=== PATIENT | male | born 1990 | race Native Hawaiian/Other Pacific Islander ===

== ENCOUNTER 2022-08-21 08:24 | Outpatient (REF) | payer OTHER, SELFPAY ==
[2022-08-21 08:45] LABS: MANUAL DIFF FLAG NO
[2022-08-21 08:51] LABS: Basophils Absolute Auto 0.1 X10*3/uL (0.0-0.2); Eosinophils Absolute Auto 0.3 X10*3/uL (0.0-0.4); Eosinophils Percent Auto 4.6 % (0-4); Hematocrit 47.5 % (42.0-52.0); Hemoglobin 15.8 g/dl (14.0-18.0); Imm Gran Abs Auto 0.02 X10*3/uL (0.00-0.03); Imm Gran Pct Auto 0.3 % (0.0-0.4); Lymphocytes Absolute Auto 2.4 X10*3/uL (1.2-4.9); Lymphocytes Percent Auto 38.9 % (20-40); Mean Corpuscular HGB Conc 33.3 g/dl (31.0-36.0); Mean Corpuscular Volume 90.1 fL (80.0-98.0); Mean Platelet Volume 8.7 fL (9.4-12.4); Monocytes Absolute Auto 0.4 X10*3/uL (0.1-1.2); Monocytes Percent Auto 5.7 % (2-11); Neutrophils Percent Auto 49.5 % (45-73); Platelet Count 299 X10*3/uL (160-400); Red Blood Count 5.27 X10*6/uL (4.60-5.80); Red Cell Distribution Width 12.6 % (11.0-16.0); White Blood Count 6.1 X10*3/uL (4.8-10.8)
[2022-08-21 09:30] LABS: Alanine Aminotransferase 29 U/L (0-40); Albumin Level 4.7 g/dL (3.5-5.0); Alkaline Phosphatase 91 U/L (39-117); Anion Gap 12 (12-20); Aspartate Amino Transferase 22 U/L (5-37); Bilirubin Total 0.6 mg/dL (0.0-1.0); Blood Urea Nitrogen 16 mg/dL (9-16); Calcium 9.7 mg/dL (8.4-10.2); Carbon Dioxide 30 mmol/L (22-29); Chloride 104 mmol/L (96-108); Cholesterol 199 mg/dL; Estimated Glomerular Filt Rate > 60; Glucose Fasting 105 mg/dL (60-99); HDL Cholesterol 55 mg/dL; LDL Cholesterol Calculated 124 mg/dl; Sodium 141 mmol/L (135-145); Total Protein 7.2 g/dL (6.5-8.0); Triglycerides 102 mg/dL
[2022-08-21 10:03] LABS: Folate 12.8 ng/mL (> or = 4.0); Vitamin B12 442 pg/mL (200-900); Vitamin D 25-OH Total 18.4 ng/mL (>30)
== END 2022-08-21 08:25 | disposition home or self-care (01) ==
LOC: HO.LAB 08:24
PROVIDERS: PCP Nurse Practitioner Family; Visit Provider Nurse Practitioner Family
DX: Z76.89 Persons encountering health services in other specified circumstances (principal); Z13.1 Encounter for screening for diabetes mellitus; Z13.220 Encounter for screening for lipoid disorders
CPT/HCPCS: 36415; 80053; 80061; 82306; 82607; 82746; 84443; 85025

== ENCOUNTER 2022-09-12 15:12 | Outpatient (REF) | payer OTHER, SELFPAY ==
[2022-09-12 16:09] LABS: Estimated Average Glucose 105 mg/dL; Hemoglobin A1c % 5.3 %
== END 2022-09-12 15:13 | disposition home or self-care (01) ==
LOC: HO.LAB 15:12
PROVIDERS: PCP Nurse Practitioner Family; Visit Provider Nurse Practitioner Family
DX: R73.01 Impaired fasting glucose (principal); R79.89 Other specified abnormal findings of blood chemistry
CPT/HCPCS: 36415; 82306; 83036

== ENCOUNTER 2022-12-02 10:24 | Outpatient (REF) | payer OTHER, SELFPAY ==
[2022-12-02 11:40] LABS: Vitamin D 25-OH Total 46.4 ng/mL (>30)
[2022-12-05 02:03] LABS: Lyme Abs Screen <0.90 index
== END 2022-12-02 10:25 | disposition home or self-care (01) ==
LOC: HO.LAB 10:24
PROVIDERS: PCP Nurse Practitioner Family; Visit Provider Nurse Practitioner Family
DX: A69.20 Lyme disease, unspecified (principal); R79.89 Other specified abnormal findings of blood chemistry
CPT/HCPCS: 36415; 82306; 86617; 86618

== ENCOUNTER 2022-12-09 17:16 | Emergency (ER) | payer OTHER, SELFPAY ==
[2022-12-09 17:35] VITALS: BP 163/101; PULSE 80; RESP 18; TEMP 36.8; O2SAT 98; BMI 20.2
--- NOTE | 2022-12-09 20:43 | ED_ITS ---
HPI - General Adult General Chief complaint: Allergic Reaction Stated complaint: ? reaction to antibiotic-swollen lip,headache Time Seen by Provider: 12/09/22 20:01 Source: patient Mode of arrival: ambulatory Limitations: no limitations History of Present Illness HPI narrative: 32yoM with a PMHx of anxiety, depression, elevated fasting glucose, low vitamin-D level and has a therapist for mental health who is presenting to the ER with complaints of migraine headaches over the past week with associated photophobia along with being on doxycycline and feeling like it is causing worsening migraine headaches. Reports this all started approximately 1 week ago when he was feeling decreased concentration, migraine headaches, light sensitivity and difficulty focusing he also was having body aches and knee swelling therefore he went to an [facility] on Sunday had a full workup with CT scan of his brain, MRI and multiple labs and everything came out normal and he was discharged. Although his symptoms persist therefore he went to urgent care on Sunday and was started on doxycycline for possible Lyme despite having 2- Lyme titers. Although he reports since he started taking the doxycycline within 2 hours he feels like he gets a worsening migraine headache and he had before he started the antibiotics and he also noticed today mild right lower lip swelling and he is concerned if it is related to the doxycycline and is unsure if he should continue taking this. he reports he does have a primary care provider that he can follow-up with. He also went to pick remover this week as well and had a normal exam and was negative for optic neuritis or glaucoma or any other acute processes. He denies any Fevers, chills, congestion, nasal congestion, trouble swallowing or breathing, cough or wheezing, chest tightness, recent falls or head trauma, neck pain or stiffness, paresthesias, focal weakness, chest pain or shortness of breath, dyspnea exertion orthopnea, nausea vomiting, abdominal pain or any other symptoms complaints or concerns at this time. MD complaint: migraine headaches and lower lip swelling with multiple other complaint Onset (ago): week(s) ( over the past week) Related Data Previous Rx's Medication Instructions Recorded nystatin 100,000 unit/gram topical 1 appl topical BID PRN rash #15 06/29/22 cream grams cholecalciferol (vitamin D3) 50 50 mcg PO DAILY #90 tabs 12/07/22 mcg (2,000 unit) tablet amoxicillin 500 mg tablet 500 mg PO TID 14 days #42 tabs 12/09/22 prednisone 20 mg tablet 40 mg PO DAILY inflammation 5 days 12/09/22 #10 tabs Allergies Allergy/AdvReac Type Severity Reaction Status Date / Time cats Allergy Intermediate Runny Nose Uncoded 12/09/22 17:40 Review of Systems Review of Systems: Constitutional : No Weight loss, No Fever, No Chills, No Night Sweats, + Fatigue, + Malaise ENT/Mouth : No Hearing loss, No Ear Pain, No Nasal Congestion, No Sinus Pain, No Hoarseness, No sore throat, No Rhinorrhea, No Swallowing Difficulty Eyes: No Eye Pain, No Swelling, No Redness, No Foreign Body, No Discharge, + blurry Vision Changes Cardiovascular : No Chest Pain, No SOB, No Dyspnea on Exertion, No Orthopnea, No Edema, No Palpitations Respiratory : No Cough, No Sputum, No Wheezing, No Smoke Exposure, No Dyspnea Gastrointestinal : No Nausea, No Vomiting, + Diarrhea, No Constipation, No abdominal Pain, No Hematochezia, No Melena Genitourinary : no irregular bleeding, No Dysuria, No Urinary Frequency, No Hematuria, No Urinary Incontinence, No Urgency, No Flank Pain, No Urinary Flow Changes, No Hesitancy Musculoskeletal : No joint pain, + Myalgias, No Joint Swelling Skin : No Skin Lesions, No rash Neuro : No Weakness, No Numbness, No Paresthesias, No Loss of Consciousness, No Dizziness, + Headache Psych : No Anxiety/Panic, No Depression, No SI/HI/AH/VH, No Social Issues, Heme/Lymph: No Bruising, No Bleeding,No Lymphadenopathy Endocrine : No Polyuria, No Polydipsia, No Temperature Intolerance Yes all other systems are reviewed and are negative [facility] Past Medical History Attestation statement: The following information was validated with the patient. Source: old records reviewed and nursing notes reviewed Medical History Encounter to establish care Surgical History History of ear surgery History of rectal surgery Family History Family History Mother Medical history unknown Father Medical history unknown Social History Social History Housing: House Patient Tobacco Use Status: Never used Tobacco Advance Directives: No Advance Directives Information Provided: Yes service: No Current occupational status: employed Cognitive needs: No Hearing needs: No Vision needs: No Physical Exam ED Vital Signs: Vital Signs - 24 hr 12/09/22 17:35 Temperature 98.2 F Pulse Rate 80 Respiratory Rate 18 Blood Pressure 163/101 H Pulse Oximetry 98 Oxygen Delivery Method Room Air BMI result Body Mass Index 20.2 vital signs have been reviewed as normal and appeared to be correct. Blood pressure normal. Heart rate normal. Respiration rate normal. Temperature normal. Oxygen saturation normal. Appearance: Alert. Oriented X3. No acute distress. Head: Normal external exam. Normocephalic. Atraumatic. No Ambrosio signs noted. No raccoon eyes noted Eyes: PERRLA. EOMI. Conjunctiva and sclera normal. Eyelids normal. ENT: EAC normal. TM's Normal. No septal hematoma noted. No hemotympanum noted. Pharynx normal. Uvula midline. Moist mucous membranes. No lesions/ulcerations or masses noted on the tongue. Normal voice. No trismus noted. No drooling noted. No muffled voice noted. Neck: Normal inspection. Neck supple. FROM. No adenopathy. Thyroid Normal. No tracheal deviation noted. No crepitus is noted. No meningeal signs. No neck mass noted. No signs of trauma noted. CVS: Normal heart rate and rhythm. Heart sound normal. Pulses normal throughout. No murmurs/rales/gallops. Respiratory: No respiratory distress. Painless inspiration. Breath sounds normal. No wheezes/rales/rhonchi noted. Chest nontender. No crepitus is noted. No signs of trauma noted. No accessory muscle usage noted or decreased air movement noted. No signs of trauma. Abdomen: Soft and nontender. Bowel sounds normal in all 4 quadrants. No distention noted. No organomegaly noted. No visible injury noted. Back: No CVA tenderness. Full range of motion noted. Nontender. No signs of trauma. Patient neuro intact bilaterally and distally on all 4 extremities. Patient's reflexes intact bilaterally and distally on all 4 extremities. No rashes/lesion/induration/fluctuance or signs of infection noted. Skin: Skin warm and dry. Normal skin color. Normal skin turgor. No rashes/lesions/lacerations noted. Extremities: No lower extremity edema. No calf tenderness is noted. Extremities exhibit normal range of motion and nontender. Neuro: Oriented X 3. No motor deficit. No sensory deficit. Reflexes normal. Normal steady gait. No focal neuro deficits noted. CN's II-XII intact bilaterally? Vascular: + radial pulses/+ 2 distal pedal pulses/+2 dorsalis pedis b/l. Normal cap refill. No cyanosis noted to upper extremity nails and lower extremity toes nails. Course Course Course Narrative: 32yoM with a PMHx of anxiety, depression, elevated fasting glucose, low vitamin-D level and has a therapist for mental health who is presenting to the ER with complaints of migraine headaches over the past week with associated photophobia along with being on doxycycline and feeling like it is causing wor sening migraine headaches. Reports this all started approximately 1 week ago when he was feeling decreased concentration, migraine headaches, light sensitivity and difficulty focusing he also was having body aches and knee swelling therefore he went to an [facility] on Sunday had a full workup with CT scan of his brain, MRI and multiple labs and everything came out normal and he was discharged. Although his symptoms persist therefore he went to urgent care on Sunday and was started on doxycycline for possible Lyme despite having 2- Lyme titers. Although he reports since he started taking the doxycycline within 2 hours he feels like he gets a worsening migraine headache and he had before he started the antibiotics and he also noticed today mild right lower lip swelling and he is concerned if it is related to the doxycycline and is unsure if he should continue taking this. he reports he does have a primary care provider that he can follow-up with. He also went to ophtha lmologist this week as well and had a normal exam and was negative for optic neuritis or glaucoma or any other acute processes. patient most likely migraine headache related to stressors or adverse effect related to the doxycycline. Not consistent with CVA or intracranial hemorrhage. Not consistent with meningitis. Not consistent with ACS. I do not believe this patient needs any labs or imaging at this time as patient had a full workup at [facility] 3 days ago including MRI, CT scan EKGs and multiple blood work along with urgent care follow-up and also has some repeat labs on Sunday. He also followed up with Ophthalmology this week and had a normal ophthalmology exam. I discussed with the patient that he can discontinue taking the doxycycline I can start him on amoxicillin and steroids for possible adverse reaction/allergic reaction to the doxycycline. Otherwise he has a normal neuro exam and had a normal workup therefore I explained to him that he can also take Motrin Tylenol for his migraine headaches and he can follow up with his PCP and to return if any new or worsening symptoms. Patient understands agrees with this plan. Medical Decision Making Medical Decision Making MDM Narrative: see course Differential Diagnosis Differential Diagnoses: The differential diagnosis associated with the presentation includes see course Admission/Observation Consideration of admission/observation: Escalation of care including admission/observation considered External Record Review External record reviewed: Inpatient record, Office record, Outpatient record, Prior outpatient labs, Prior outpatient radiology, Primary care record and Outside ED record All prior labs/imaging and notes that are accessible and our system reviewed by myself Prescription Management I considered prescription management with: Antibiotic and Other ( and prednisone) Chronic Conditions Patient?s care impacted by: Other ( mental health anxiety depression) Social Determinants Patient?s care significantly limited by Social Determinants of Health including: Low income and Other Social Determinant of Health Discharge Plan Discharge Clinical Impression: Headache, migraine, Adverse effect of doxycycline Patient Disposition: Home, Self-Care Instructions: Migraine Headache (ED), Adverse Drug Reaction (ED) Prescriptions: New amoxicillin 500 mg tablet 500 mg PO TID 14 Days Qty: 42 0RF prednisone 20 mg tablet 40 mg PO DAILY 5 Days Qty: 10 0RF No Action cholecalciferol (vitamin D3) 50 mcg (2,000 unit) tablet 50 mcg PO DAILY Qty: 90 0RF nystatin 100,000 unit/gram cream 1 appl topical BID PRN (Reason: rash) Qty: 15 0RF Referrals: Physician,Unknown J [Primary Care Provider] - 2 days (your pcp)
== END 2022-12-09 21:21 | disposition home or self-care (01) ==
PROVIDERS: Emergency Provider Emergency Medicine
DX: G43.909 Migraine, unspecified, not intractable, without status migrainosus (principal); T36.4X5A Adverse effect of tetracyclines, initial encounter; Y92.9 Unspecified place or not applicable
CPT/HCPCS: 99282; 99283

== ENCOUNTER 2022-12-14 14:37 | Outpatient (AMB) | payer OTHER, SELFPAY ==
[2022-12-14 14:38] VITALS: BP 160/82; PULSE 98; O2SAT 99; BMI 19.7
--- NOTE | 2022-12-14 14:38 | A.OFFPC_ITS ---
Vital Signs 12/14/22 14:38 12/14/22 15:14 Height 5 ft 11 in Weight 141 lb BMI 19.7 BP 160/82 H 130/86 Blood Pressure Location Lt brachial Lt brachial Position Sitting Sitting Pulse 98 Pulse Source Pulse Oximeter Temp Source Skin Pulse Oximetry (%) 99 Oxygen Delivery Method Room Air Intake Visit Re[place] [facility] [place], loss of vision, headaches Intake Note: Patient is here for hospital discharge follow up. Patient was [place] [facility] [place]. [employer] Required: No Allergies cats Allergy (Intermediate, Uncoded 12/14/22 14:49) Runny Nose Medication List - Last Reconciled 12/14/22 by LEONOR Walter cholecalciferol (vitamin D3) 50 mcg PO DAILY nystatin 1 appl topical BID PRN Tobacco use date assessed: 12/14/22 Dental Screening Dental Screen Date: 12/14/22 HPI [facility] [place], loss of vision, headaches HPI Details Patient is a 32-year-old male who presents today to follow-up after [facility] visit 12/05/2022 due to dizziness, nausea, unsteady, aches since November. Pre [facility] Emergency Department note: Patient presented to ED with a 2 week history of multiple complaints. Patient with concerns of Lyme disease. He states he has had intermittent nausea, body aches, lightheadedness, diarrhea, headaches, and fatigue for the past 2 weeks. He denies known tick bites or rashes. He was seen at urgent care and tested negative for COVID-19. He denies changes in diet or medication. He denies recent travel or no sick contacts. Vital signs were stable, benign exam. Patient was treated with IV hydration, Zofran, and Toradol. Chest x-ray with no acute cardiopulmonary process. CT brain/head with no acute intracranial abnormality. Blood work respiratory panel and EKG with no concerning abnormalities. Patient was discharged home with Zofran as needed for nausea encouraged to follow up with PCP. Patient reports that he was seen at urgent care 12/04/2022 and was started on doxycycline for a possible Lyme disease. Then, patient was seen at [facility] 12/09/2022: 32yoM with a PMHx of? anxiety, depression, elevated fasting glucose, low vitamin-D level and has a therapist for mental health who is presenting to the ER with complaints of migraine headaches over the past week with associated photophobia along with being on doxycycline and feeling like it is causing worsening migraine headaches.? Reports this all started approximately 1 week ago when he was feeling decreased concentration, migraine headaches, light sensitivity and difficulty focusing he also was having body aches and knee swelling [facility] full [facility] with CT scan of his brain, MRI and multiple labs and everything came out normal and he was discharged.? Although his symptoms persist therefore he went to urgent care on Sunday and was started on doxycycline for possible Lyme despite having 2- Lyme titers.? Although he reports? since he started taking the doxycycline within 2 hours he feels like he gets a worsening migraine headache and he had before he started the antibiotics and he also noticed today mild right lower lip swelling and he is concerned if it is related to the doxycycline and is unsure if he should continue taking this.? he reports he does have a primary care provider that he can follow-up with.? He also went to lacquerer this week as well and had a normal exam and was negative for optic neuritis or glaucoma or any other acute processes. ?patient most likely migraine headache related to stressors or adverse effect related to the doxycycline.? Not consistent with CVA or intracranial hemorrhage.? Not consistent with meningitis.? Not consistent with ACS.? I do not believe this patient needs any labs or imaging at this time as patient had a full workup at [facility] 3 days ago including MRI, CT scan EKGs and multiple blood work along with urgent care follow-up and also has some repeat labs on Sunday.? He also followed up with Ophthalmology this week and had a normal ophthalmology exam.? I discussed with the patient that? he can discontinue taking the doxycycline I can start him on amoxicillin and steroids for possible adverse reaction/allergic reaction to the doxycycline.? Otherwise he has a normal neuro exam and had a normal workup therefore I explained to him that he can also take Motrin Tylenol for his migraine headaches and he can follow up with his PCP and to return if any new or worsening symptoms.? Patient understands agrees with this plan. Today, patient reports left temporal headache throbbing sensation, left ear clog ged sensation, sensitivity to light, fatigue, chills, body aches, multiple joint pains in his shoulders and wrists, reports pain left-sided ribs lateral aspect- denies injury. Reports headache 8/10 scale presently left-sided, reports taking Tylenol with no much improvement. Reports headaches in the past although headaches seem to get worse after he was on doxycycline. Patient reports that he was also started on amoxicillin in [facility] although his stop with due to double vision. Reports that he has finished prednisone. Was seen by eye doctor 12/06/2022 and was diagnosed with dry eyes and posterior vitreous detachment-will be seeing eye doctor again for this. Patient reports that he stopped drinking any alcohol since starting with his symptoms. Reports being on computer about 6 hours per day. Reports nausea and diarrhea intermittent. No chest pain. Patient did provide PCP with list of his symptoms and days, see scanned in the chart. [facility] Medical History Encounter to establish care Surgical History History of ear surgery History of rectal surgery Family History Mother Medical history unknown Father Medical history unknown Social History Housing: House Patient Tobacco Use Status: Never used Tobacco service: No Current occupational status: employed Cognitive needs: No Hearing needs: No Vision needs: No Questionnaire Thrive Questionnaire Date Thrive assessed: 06/29/22 AUDIT C Alcohol Use Questionnaire (AUDIT-C) 1. How often do you have a drink containing alcohol?: 2-3 times a week 2. How many drinks containing alcohol do you have on a typical day when you are drinking?: 3 or 4 3. How often do you have six or more drinks on one occasion?: Daily or almost daily Total Score: 8 Score Reviewed/Action Taken: Yes ARVIND-7 AMB Questionnaire ARVIND-7 Date ARVIND - 7 assessed: 09/27/22 Source: Developed by Drs. Scooter Briones, Lida Carey, Gerard Lakhani and colleagues, with an educational karol from [employer]. Review of Systems Const Reports as per HPI, Denies body aches, Reports chills, Reports fatigue, Denies fever(s) and Reports headache(s) Eyes Reports as per HPI, Reports blurry vision, Reports change in vision, Reports diplopia and Reports floaters ENT Reports as per HPI, Reports dizziness, Denies otalgia, Reports headache(s), Denies nasal discharge, Denies sinus pain and Denies sore throat Card Denies chest pain, Denies edema, Denies lightheadedness and Denies dyspnea Resp Denies cough, Denies dyspnea and Denies wheezing GI Denies abdominal pain, Denies constipation, Reports diarrhea, Reports nausea and Denies vomiting Denies dysuria Musc Denies myalgias and Reports arthralgias Skin/Breast Denies rash Neuro Reports dizziness and Reports headache(s) Endo Reports fatigue Aller/Immun Denies wheezing Physical exam (Primary Care) Vital Signs: Last Vital Signs Pulse 98 12/14/22 14:38 BP 130/86 12/14/22 15:14 Pulse Ox 99 12/14/22 14:38 Oxygen Delivery Method Room Air 12/14/22 14:38 BMI result Body Mass Index 19.7 Tobacco/Smoking Status: Tobacco use Status Tobacco use date assessed 12/14/22 12/14/22 14:42 Patient Tobacco Use Status Never used Tobacco 12/14/22 14:42 Thrive Assessment: Date of Thrive Assessment Date Thrive assessed 06/29/22 12/14/22 14:42 Const General: cooperative and no acute distress Orientation/consciousness: patient oriented x3 HENMT Other: No left temporal tenderness Head: Yes normocephalic and Yes atraumatic Ears: TM's normal bilaterally Face and sinus: Yes sinuses nontender Mouth: oropharynx normal and moist mucous membranes Throat: Yes posterior oropharynx normal Eyes General: appearance normal, both eyes and all related structures Pupils: Equal, round and reactive pupils present EOM: EOMs intact bilaterally Neck Neck: Yes normal visual inspection, Yes full ROM and Yes no lymphadenopathy Thyroid: Thyroid normal Resp Effort & Inspection: normal respiratory effort and able to speak in complete sentences Auscultation: clear to auscultation bilaterally, no crackles, no rales, no rhonchi and no wheezes Cardio Rate: regular rate Rhythm: regular rhythm Heart sounds: S1 normal heart sound present, S2 normal heart sound present and no murmurs GI Inspection: Yes normal to inspection Palpation (GI): Soft to palpation, not firm, nontender, no guarding, not rigid and no hepatosplenomegaly Auscultation: normal bowel sounds General: No CVA tenderness Back/Spine/Pelvis Back: No CVA tenderness Skin General skin exam: no rashes or lesions noted Neuro General: patient oriented x3 and CN's II-XI intact bilaterally Cranial nerves: Yes Equal, round and reactive pupils present Gait exam (Neuro): Normal gait present Motor exam (neuro): 5/5 motor strength present throughout Extrem Other: Left ribs normal to inspection, very mild tenderness General: Yes full ROM and No edema Assessment and Plan Assessment & Plan (1) Diarrhea: Code(s): R19.7 - Diarrhea, unspecified Plan: Encouraged bland diet Blood work and stool samples ordered Signs and symptoms reviewed when to notify provider or go to the emergency department (2) Polyarthralgia: Code(s): M25.50 - Pain in unspecified joint Plan: Blood work ordered, will also check for rheumatoid arthritis and DILAN (3) Headache: Code(s): R51.9 - Headache, unspecified Plan: Patient reports left temporal headache which is throbbing with sensitivity to light, reports feeling slightly better in dark room. Physical exam with no acute findings. Patient is to continue Tylenol 1000 mg every 6 hours as needed, will provide patient with ibuprofen 600 mg every 8 hours p.r.n.. He can alternate Tylenol with ibuprofen. Offered to start patient on sumatriptan, he would like to hold off due to possible adverse reactions such as partial vision loss. 12/05/2022 CT brain/head with no acute intracranial abnormality. Urgent referral to Neurology for an evaluation and treatment. Signs and symptoms reviewed when to notify provider or go to the emergency department. (4) Adverse effect of doxycycline: Code(s): T36.4X5A - Adverse effect of tetracyclines, initial encounter Plan: Patient has finished prednisone Plan 1st blood pressure was elevated in the office today, recheck blood pressure normal. Patient was encouraged to monitor his blood pressures at home periodically, goal BP equal or less than 140/90. Signs and symptoms reviewed when to notify provider or go to the emergency department. Patient agreed with the plan. Will follow-up with patient in 1 month. Orders: Orders Vitamin B12 and Folate Today R51.9 - Headache, unspecified Comprehensive Met. Panel Today R51.9 - Headache, unspecified Rheumatoid Factor Today M25.50 - Pain in unspecified joint TSH reflex Free T4 Today R51.9 - Headache, unspecified Vitamin D 25-OH Total Today R51.9 - Headache, unspecified Complete Blood Count Auto Diff Today R51.9 - Headache, unspecified DILAN Reflex Titer and Pattern Today M25.50 - Pain in unspecified joint CDiff Gene PCR Today R19.7 - Diarrhea, unspecified Ova and Parasite Today R19.7 - Diarrhea, unspecified Leukocytes Stool Qualitative Today R19.7 - Diarrhea, unspecified Referrals Neurology Referral R51.9 - Headache, unspecified Medications: New ibuprofen 600 mg PO Q8H PRN 20 tabs 0RF pain R51.9 - Headache, unspecified Coding Level of Care Code Est Pt Level 3 (70485) Diagnoses Diarrhea R19.7 Polyarthralgia M25.50 Headache R51.9 Adverse effect of doxycycline T36.4X5A
[2022-12-14 15:14] VITALS: BP 130/86
== END 2022-12-14 15:35 | disposition home or self-care (01) ==
PROVIDERS: Visit Provider Nurse Practitioner Family
DX: R19.7 Diarrhea, unspecified (principal); M25.50 Pain in unspecified joint; R51.9 Headache, unspecified; T36.4X5A Adverse effect of tetracyclines, initial encounter
CPT/HCPCS: 99213

== ENCOUNTER 2022-12-16 10:19 | Outpatient (REF) | payer OTHER, SELFPAY ==
[2022-12-16 10:49] LABS: MANUAL DIFF FLAG NO
[2022-12-16 11:20] LABS: Basophils Absolute Auto 0.1 X10*3/uL (0.0-0.2); Eosinophils Percent Auto 0.6 % (0-4); Hematocrit 44.2 % (42.0-52.0); Imm Gran Abs Auto 0.01 X10*3/uL (0.00-0.03); Imm Gran Pct Auto 0.2 % (0.0-0.4); Lymphocytes Absolute Auto 1.7 X10*3/uL (1.2-4.9); Mean Corpuscular HGB Conc 33.9 g/dl (31.0-36.0); Mean Corpuscular Hemoglobin 30.2 pg (27.0-33.0); Mean Corpuscular Volume 89.1 fL (80.0-98.0); Mean Platelet Volume 9.4 fL (9.4-12.4); Monocytes Absolute Auto 0.3 X10*3/uL (0.1-1.2); Monocytes Percent Auto 5.7 % (2-11); Neutrophils Percent Auto 58.5 % (45-73); Platelet Count 291 X10*3/uL (160-400); Red Blood Count 4.96 X10*6/uL (4.60-5.80); Red Cell Distribution Width 11.4 % (11.0-16.0); White Blood Count 5.1 X10*3/uL (4.8-10.8)
[2022-12-16 12:15] LABS: Vitamin B12 494 pg/mL (200-900)
[2022-12-16 12:31] LABS: Rheumatoid Factor < 13.0 IU/mL (<15.0)
[2022-12-16 14:57] LABS: Alanine Aminotransferase 20 U/L (0-40); Albumin Level 4.7 g/dL (3.5-5.0); Alkaline Phosphatase 68 U/L (39-117); Anion Gap 14 (12-20); Aspartate Amino Transferase 18 U/L (5-37); Bilirubin Total 0.9 mg/dL (0.0-1.0); Blood Urea Nitrogen 15 mg/dL (9-16); Carbon Dioxide 28 mmol/L (22-29); Chloride 105 mmol/L (96-108); Estimated Glomerular Filt Rate > 60; Glucose Random 99 mg/dL (60-115); Potassium 4.8 mmol/L (3.3-5.1); Sodium 142 mmol/L (135-145); Total Protein 7.5 g/dL (6.5-8.0)
[2022-12-16 15:12] LABS: TSH reflex Free T4 1.42 uIU/mL (0.32-4.0)
[2022-12-19 06:28] LABS: Lyme Abs Screen <0.90 index
[2022-12-22 13:29] LABS: Anti Nuclear Antibody Screen NEGATIVE (NEGATIVE)
== END 2022-12-16 10:20 | disposition home or self-care (01) ==
LOC: HO.LAB 10:19
PROVIDERS: PCP Nurse Practitioner Family; Visit Provider Nurse Practitioner Family
DX: M25.50 Pain in unspecified joint (principal); R51.9 Headache, unspecified
CPT/HCPCS: 36415; 80053; 82306; 82607; 82746; 84443; 85025; 86038; 86431; 86617; 86618

== ENCOUNTER 2022-12-18 12:03 | Outpatient (REF) | payer OTHER, SELFPAY ==
[2022-12-18 13:49] LABS: Leukocytes Stool Qualitative NEGATIVE (NEGATIVE)
[2022-12-18 14:04] LABS: CDiff Gene PCR NEGATIVE (Negative)
== END 2022-12-18 12:04 | disposition home or self-care (01) ==
LOC: HO.LNP 12:03
PROVIDERS: Visit Provider Nurse Practitioner Family
DX: R19.7 Diarrhea, unspecified (principal)
CPT/HCPCS: 87177; 87209; 87493; 89055

== ENCOUNTER 2022-12-18 14:31 | Outpatient (AMB) | payer OTHER, SELFPAY ==
--- NOTE | 2022-12-18 14:53 | MHC.PC.OV ---
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 Patient last seen by Radha Calle on 12/14/22. Patient presents today for muscle twitching, fatigue and polyphagia. Review of the notes patient has been seen multiple times between [facility], [facility] and urgent cares for photophobia, worsening migraine headaches, light sensitivity and difficulty focusing as well as body aches. Workup at [facility] head CT, MRI and labs unremarkable. Symptoms persisted so he went to urgent care was started on doxycycline for treatment of Lyme however he had 2 Lyme titers which were negative. Patient then complained of adverse reactions related to doxycycline that he was started on. And was treated with amoxicillin and steroids for this. Patient last seen by Radha Calle last week. Complete blood work was drawn, unremarkable, rheumatoid factor negative. DILAN remains pending. Patient presents today stating that he continues to have muscle twitching and is concerned that he is a diabetic due to his past poor eating habits and would like to have his diabetic labs completed again. Patient reassured hemoglobin A1c and fasting glucose was normal in September of 5.3%, patient adamant that he would like his labs redrawn. Hemoglobin A1c, CMP as well as magnesium and phosphorus ordered. Patient currently following with a therapist for anxiety however he is not interested in taking any medications at this time. [facility] Medical History Encounter to establish care Surgical History History of ear surgery History of rectal surgery Family History Mother Medical history unknown Father Medical history unknown Social History Housing: House Patient Tobacco Use Status: Never used Tobacco service: No Current occupational status: employed Cognitive needs: No Hearing needs: No Vision needs: No Questionnaire Thrive Questionnaire Date Thrive assessed: 06/29/22 AUDIT C Alcohol Use Questionnaire (AUDIT-C) 1. How often do you have a drink containing alcohol?: 2-3 times a week 2. How many drinks containing alcohol do you have on a typical day when you are drinking?: 3 or 4 3. How often do you have six or more drinks on one occasion?: Daily or almost daily Total Score: 8 Score Reviewed/Action Taken: Yes ARVIND-7 AMB Questionnaire ARVIND-7 Date ARVIND - 7 assessed: 09/27/22 Source: Developed by Drs. Scooter Briones, Lida Carey, Gerard Lakhani and colleagues, with an educational karol from [employer]. Review of Systems Const Denies chills, Denies fatigue, Denies fever(s) and Denies poor appetite Eyes Denies no additional complaints ENT Reports Normal hearing present Card Denies chest pain, Denies syncope, Denies rapid heart rate and Denies dyspnea Resp Denies cough and Denies dyspnea GI Denies change in stool character, Denies constipation, Denies diarrhea, Denies nausea and Denies vomiting Denies dysuria, Denies urinary frequency and Denies urinary urgency Neuro Reports Normal hearing present, Denies confusion and Denies syncope Psych Denies confusion Endo Denies fatigue Physical exam (Primary Care) Vital Signs: Last Vital Signs Pulse 72 12/18/22 14:54 BP 130/70 12/18/22 14:54 Pulse Ox 100 12/18/22 14:54 Oxygen Delivery Method Room Air 12/18/22 14:54 BMI result Body Mass Index 19.5 Tobacco/Smoking Status: Tobacco use Status Tobacco use date assessed 12/18/22 12/18/22 15:00 Patient Tobacco Use Status Never used Tobacco 12/18/22 14:54 Thrive Assessment: Date of Thrive Assessment Date Thrive assessed 06/29/22 12/18/22 14:54 Const General: No confusion Orientation/consciousness: No confusion HENMT Head: Yes normocephalic and Yes atraumatic Eyes Conjunctivae: conjunctivae normal Chest Chest palpation & inspection: normal inspection of the chest Resp Effort & Inspection: normal respiratory effort Auscultation: clear to auscultation bilaterally, no crackles, no rhonchi and no wheezes Cardio Rate: regular rate Rhythm: regular rhythm Heart sounds: S1 normal heart sound present and S2 normal heart sound present GI Inspection: Yes normal to inspection Neuro General: No confusion Cranial nerves: Yes Normal hearing present Extrem General: No edema Assessment and Plan Assessment & Plan (1) Polyphagia: Code(s): R63.2 - Polyphagia Plan: HGB A1C and Fasting glucose ordered. (2) Muscle twitching: Code(s): R25.3 - Fasciculation Plan: CMP, magnesium and phosphorus ordered to further evaluate for any electrolyte abnormalities. (3) Anxiety: Code(s): F41.9 - Anxiety disorder, unspecified Plan: Continue to follow with therapist. (4) Depression: Code(s): F32.A - Depression, unspecified Plan: Continue to follow with therapist. Denies SI/HI Plan Keep scheduled follow-up with PCP. Orders: Orders Comprehensive [place]. Panel Fast 12/19/22 R63.2 - Polyphagia Hemoglobin A1c 12/19/22 R63.2 - Polyphagia Magnesium 12/19/22 R25.3 - Fasciculation, R63.2 - Polyphagia Phosphorus 12/19/22 R25.3 - Fasciculation Coding Level of Care Code Est Pt Level 4 (05952) Diagnoses Polyphagia R63.2 Muscle twitching R25.3 Anxiety F41.9 Depression F32.A
[2022-12-18 14:54] VITALS: BP 130/70; PULSE 72; O2SAT 100; BMI 19.5
== END 2022-12-18 15:35 | disposition home or self-care (01) ==
PROVIDERS: PCP Nurse Practitioner Family; Visit Provider Nurse Practitioner Family
DX: R63.2 Polyphagia (principal); R25.3 Fasciculation; F41.9 Anxiety disorder, unspecified; F32.A Depression, unspecified
CPT/HCPCS: 99214

== ENCOUNTER 2022-12-19 08:08 | Emergency (ER) | payer OTHER, SELFPAY ==
[2022-12-19 08:10] VITALS: BP 150/82; PULSE 72; RESP 18; TEMP 36.8; O2SAT 98; BMI 19.8
--- NOTE | 2022-12-19 08:15 | ECG_ITS ---
Test Reason : cp Blood Pressure : / mmHG Vent. Rate : 074 BPM Atrial Rate : 074 BPM P-R Int : 178 ms QRS Dur : 088 ms QT Int : 362 ms P-R-T Axes : 077 091 074 degrees QTc Int : 401 ms Normal sinus rhythm with sinus arrhythmia Rightward axis Borderline ECG No previous ECGs available Referred By: Generic ED Physician Electronically Signed By:ARLINE NEWMAN
[2022-12-19 08:32] LABS: MANUAL DIFF FLAG NO
[2022-12-19 08:36] LABS: Basophils Percent Auto 0.6 % (0-2); Eosinophils Absolute Auto 0.1 X10*3/uL (0.0-0.4); Eosinophils Percent Auto 1.6 % (0-4); Hematocrit 43.9 % (42.0-52.0); Hemoglobin 15.2 g/dl (14.0-18.0); Imm Gran Abs Auto 0.01 X10*3/uL (0.00-0.03); Imm Gran Pct Auto 0.2 % (0.0-0.4); Lymphocytes Absolute Auto 1.7 X10*3/uL (1.2-4.9); Lymphocytes Percent Auto 32.8 % (20-40); Mean Corpuscular HGB Conc 34.6 g/dl (31.0-36.0); Mean Corpuscular Volume 86.8 fL (80.0-98.0); Monocytes Absolute Auto 0.3 X10*3/uL (0.1-1.2); Monocytes Percent Auto 5.3 % (2-11); Neutrophils Absolute Auto 3.1 x10*3/uL (2.0-8.3); Neutrophils Percent Auto 59.5 % (45-73); Platelet Count 289 X10*3/uL (160-400); Red Blood Count 5.06 X10*6/uL (4.60-5.80); Red Cell Distribution Width 11.8 % (11.0-16.0); White Blood Count 5.1 X10*3/uL (4.8-10.8)
[2022-12-19 08:48] LABS: Anion Gap 11 (12-20); Blood Urea Nitrogen 14 mg/dL (9-16); Calcium 9.6 mg/dL (8.4-10.2); Carbon Dioxide 26 mmol/L (22-29); Chloride 106 mmol/L (96-108); Creatinine Clr Calc Pharmacy 112.5; Estimated Glomerular Filt Rate > 60; Glucose Random 101 mg/dL (60-115); Potassium 4.1 mmol/L (3.3-5.1); Sodium 139 mmol/L (135-145)
[2022-12-19 08:58] LABS: Troponin-I High Sensitivity < 2.7 ng/L (<3.5-35.0)
--- NOTE | 2022-12-19 11:03 | ED.GENADULT ---
HPI - General Adult General Chief complaint: General Medical Stated complaint: Heart issues/Double vision Time Seen by Provider: 12/19/22 11:03 Source: patient, RN notes reviewed and old records reviewed Mode of arrival: ambulatory History of Present Illness HPI narrative: 32-year-old male with a past medical history depression, anxiety, polyarthralgia, presenting to the ED complaining of diffuse myalgias, muscle twitching, left-sided temporal headache, palpitations with feeling like I was having a heart attack last night. Patient has been seen and treated by multiple providers in the past few weeks including [facility] ED, [employer], this ED, & PCP x2 visits most recently yesterday, for similar symptoms, has had negative labs, head CT, and Lyme titer. DILAN titers currently pending. Patient was on course of Doxycycline which was changed to Amoxicillin secondary to worsening symptoms, self stop Amoxicillin last week. Admits chest pain improved at present. Denies SOB, abdominal pain, nausea /vomiting, vision loss Onset (ago): week(s) Related Data Previous Rx's Medication Instructions Recorded nystatin 100,000 unit/gram topical 1 appl topical BID PRN rash #15 06/29/22 cream grams cholecalciferol (vitamin D3) 50 50 mcg PO DAILY #90 tabs 12/07/22 mcg (2,000 unit) tablet ibuprofen 600 mg tablet 600 mg PO Q8H PRN pain #20 tabs 12/14/22 Allergies Allergy/AdvReac Type Severity Reaction Status Date / Time cats Allergy Intermediate Runny Nose Uncoded 12/18/22 14:58 Review of Systems Review of Systems: Constitutional: No Fever, No Chills, No Fatigue, No Malaise ENT/Mouth: No Ear Pain, No Nasal Congestion, No sore throat, No Rhinorrhea, No Swallowing Difficulty Eyes: No Eye Pain, No Swelling, No Redness, No Vision Changes Cardiovascular: +Chest Pain, No SOB, No Edema, + Palpitations Respiratory: No Cough, No Dyspnea Gastrointestinal: No Nausea, No Vomiting, No Diarrhea, No Constipation, No Abdominal pain Genitourinary: No Dysuria, No Hematuria, No Flank Pain Musculoskeletal: No joint pain, + Myalgias, No Joint Swelling Skin: No Skin Lesions, No rash Neuro: No Weakness, No Numbness, + Paresthesias, No Loss of Consciousness, No Dizziness, + Headache Psych: + Anxiety/Panic, No Depression, No SI/HI/AH/VH, No Social Issues Yes all other systems are reviewed and are negative Constitutional: Constitutional: Reports as per HPI Neurologic: Denies Abnormal speech present [facility] Past Medical History Attestation statement: The following information was validated with the patient. Source: old records reviewed Medical History Encounter to establish care Surgical History History of ear surgery History of rectal surgery Family History Family History Mother Medical history unknown Father Medical history unknown Social History Social History Housing: House Patient Tobacco Use Status: Never used Tobacco service: No Current occupational status: employed Cognitive needs: No Hearing needs: No Vision needs: No Physical Exam ED Vital Signs: Vital Signs - 24 hr 12/19/22 08:10 12/19/22 11:16 12/19/22 13:31 Temperature 98.2 F 98.7 F 98.3 F Pulse Rate 72 72 65 Respiratory Rate 18 16 16 Blood Pressure 150/82 H 136/71 129/73 Pulse Oximetry 98 100 99 Oxygen Delivery Method Room Air Room Air Room Air BMI result Body Mass Index 19.8 Const General: cooperative, healthy appearing, no acute distress, alert and awake Orientation/consciousness: patient oriented x3 Limitations: no limitations HENMI Head: Yes normal to inspection and Yes atraumatic Ears: hearing grossly normal bilaterally General nose exam: Normal external nose present Face and sinus: Yes normal facial exam Throat: Yes posterior oropharynx normal, Yes tonsils normal, Yes uvula midline, No peritonsillar mass and No uvular edema Eyes General: appearance normal, both eyes and all related structures Pupils: Equal, round and reactive pupils present EOM: EOMs intact bilaterally Neck Neck: Yes normal visual inspection and Yes no meningeal signs Resp Effort & Inspection: normal respiratory effort and no respiratory distress Auscultation: clear to auscultation bilaterally and no wheezes Cardio Rate: regular rate Heart sounds: S1 normal heart sound present and S2 normal heart sound present GI Inspection: Yes normal to inspection Palpation (GI): Soft to palpation, nontender, no guarding and not rigid Skin Rashes: no rashes Wounds: no wounds Neuro General: patient oriented x3, gait normal, tone normal, moves all extremities, no meningeal signs, no focal motor deficits and CN's II-XI intact bilaterally Cranial nerves: Yes CN's II-XII intact bilaterally, Yes Equal, round and reactive pupils present, Yes Bilaterally intact EOM present and Yes Normal facial strength present Speech: No Abnormal speech present Gait exam (Neuro): Normal gait present Motor exam (neuro): 5/5 motor strength present throughout, Pronator motor function not present and no tremor noted Coordination: [id number] test normal Romberg Test: Negative Extrem General: Yes normal to inspection Course Course Course Narrative: -1328-- labs unremarkable including ESR/CRP, UA with 15 ketones/not infected Results discussed with patient including worrisome signs and symptoms and strict return precautions, and when to return to the emergency department. They verbalized understanding and feel safe for discharge at this time. Medical Decision Making Medical Decision Making MDM Narrative: 32-year-old male with a past medical history depression, anxiety, polyarthralgia, presenting to the ED complaining of diffuse myalgias, muscle twitching, left-sided temporal headache, palpitations with feeling like I was having a heart attack last night. on exam vital signs stable, anxious, NAD, nontoxic appearing, exam nonfocal, no focal neuro deficits. Concern for anxiety vs metabolic abnormality vs ? giant cell arteritis vs autoimmune pathology. Low suspicion for ACS, PE, pneumonia, pancreatitis/ cholecystitis or other intra-abdominal pathology vs migraine headache vs viral syndrome plan: Labs including electrolytes, ESR/ CRP, folate/B12, CPK, UA, rheumatology/PCP and neurology follow-up Please refer to course for remaining clinical decision making, interpretation of labs/imaging results, and discussions with consultants and/or family members. Differential Diagnosis Differential Diagnoses: The differential diagnosis associated with the presentation includes As above Admission/Observation Consideration of admission/observation: Escalation of care including admission/observation considered Lab Data [facility] Lab Attestation statement: I reviewed the patient's lab results. 12/19/22 08:27 12/19/22 08:27 Labs: Lab Results 12/19/22 12/19/22 12/19/22 Range/Units 08:27 08:27 08:27 WBC 5.1 (4.8-10.8) X10*3/uL RBC 5.06 (4.60-5.80) X10*6/uL Hgb 15.2 (14.0-18.0) g/dl Hct 43.9 (42.0-52.0) % MCV 86.8 (80.0-98.0) fL MCH 30.0 (27.0-33.0) pg MCHC 34.6 (31.0-36.0) g/dl RDW 11.8 (11.0-16.0) % Plt Count 289 (160-400) X10*3/uL MPV 9.0 L (9.4-12.4) fL Immature Gran % (Auto) 0.2 (0.0-0.4) % Neut % (Auto) 59.5 (45-73) % Lymph % (Auto) 32.8 (20-40) % Barron % (Auto) 5.3 (2-11) % Eos % (Auto) 1.6 (0-4) % Baso % (Auto) 0.6 (0-2) % Lymph # (Auto) 1.7 (1.2-4.9) X10*3/uL Barron # (Auto) 0.3 (0.1-1.2) X10*3/uL Eos # (Auto) 0.1 (0.0-0.4) X10*3/uL Baso # (Auto) 0.0 (0.0-0.2) X10*3/uL Abs Immat Gran (auto) 0.01 (0.00-0.03) X10*3/uL Absolute Neuts (auto) 3.1 (2.0-8.3) x10*3/uL Absolute Nucleated RBC 0.000 (0.0-0.012) X10*3/uL Nucleated RBC % (auto) 0.0 (0.0-0.2) /100WBC ESR (0-15) MM/HR Sodium 139 (135-145) mmol/L Potassium 4.1 (3.3-5.1) mmol/L Chloride 106 (96-108) mmol/L Carbon Dioxide 26 (22-29) mmol/L Anion Gap 11 L (12-20) BUN 14 (9-16) mg/dL Creatinine 0.86 (0.5-1.4) mg/dL Estim Creat Clear Calc 112.5 Estimated GFR > 60 Random Glucose 101 (60-115) mg/dL Calcium 9.6 (8.4-10.2) mg/dL Phosphorus 2.8 (2.7-4.5) mg/dL Magnesium 2.1 (1.6-2.6) mg/dL Total Creatine Kinase 79 (38-174) U/L Troponin I High Sens < 2.7 (<3.5-35.0) ng/L C-Reactive Protein < 0.10 (< or = 0.50) mg/dL Urine Color Urine Appearance Urine pH (5.0-9.0) Ur Specific [place] (1.005-1.025) Urine Protein (Neg-Trace) mg/dL Urine Glucose (UA) (Negative) mg/dL Urine Ketones (Negative) mg/dL Urine Blood (Negative) Urine Nitrite (Negative) Ur Leukocyte Esterase (Negative) 12/19/22 12/19/22 Range/Units 08:27 12:51 WBC (4.8-10.8) X10*3/uL RBC (4.60-5.80) X10*6/uL Hgb (14.0-18.0) g/dl Hct (42.0-52.0) % MCV (80.0-98.0) fL MCH (27.0-33.0) pg MCHC (31.0-36.0) g/dl RDW (11.0-16.0) % Plt Count (160-400) X10*3/uL MPV (9.4-12.4) fL Immature Gran % (Auto) (0.0-0.4) % Neut % (Auto) (45-73) % Lymph % (Auto) (20-40) % Barron % (Auto) (2-11) % Eos % (Auto) (0-4) % Baso % (Auto) (0-2) % Lymph # (Auto) (1.2-4.9) X10*3/uL Barron # (Auto) (0.1-1.2) X10*3/uL Eos # (Auto) (0.0-0.4) X10*3/uL Baso # (Auto) (0.0-0.2) X10*3/uL Abs Immat Gran (auto) (0.00-0.03) X10*3/uL Absolute Neuts (auto) (2.0-8.3) x10*3/uL Absolute Nucleated RBC (0.0-0.012) X10*3/uL Nucleated RBC % (auto) (0.0-0.2) /100WBC ESR 2 (0-15) MM/HR Sodium (135-145) mmol/L Potassium (3.3-5.1) mmol/L Chloride (96-108) mmol/L Carbon Dioxide (22-29) mmol/L Anion Gap (12-20) BUN (9-16) mg/dL Creatinine (0.5-1.4) mg/dL Estim Creat Clear Calc Estimated GFR Random Glucose (60-115) mg/dL Calcium (8.4-10.2) mg/dL Phosphorus (2.7-4.5) mg/dL Magnesium (1.6-2.6) mg/dL Total Creatine Kinase (38-174) U/L Troponin I High Sens (<3.5-35.0) ng/L C-Reactive Protein (< or = 0.50) mg/dL Urine Color Yellow Urine Appearance Clear Urine pH 7.5 (5.0-9.0) Ur Specific [place] 1.020 (1.005-1.025) Urine Protein Negative (Neg-Trace) mg/dL Urine Glucose (UA) Negative (Negative) mg/dL Urine Ketones 15 (Negative) mg/dL Urine Blood Negative (Negative) Urine Nitrite Negative (Negative) Ur Leukocyte Esterase Negative (Negative) Independent Interpretation I performed an independent interpretation of an: EKG ( EKG normal sinus rhythm with sinus arrhythmia at a rate of 74. QRS 88. QTC 401. No STEMI.) Radiology Impression Discussion of test interpretation with radiology: I have reviewed the radiologist's reading. External Record Review External record reviewed: Inpatient record, Office record, Outpatient record, Prior outpatient labs, Prior outpatient radiology, Primary care record and Outside ED record Tests considered The following testing was considered but not selected: As above Social Determinants Patient?s care significantly limited by Social Determinants of Health including: Problems related to primary support group Discharge Plan Discharge Clinical Impression: Myalgia, Headache Patient Disposition: Home, Self-Care Instructions: Arthralgia (ED) Additional Instructions: your blood work and urine are reassuring you need to follow-up with Rheumatology and her primary care doctor We also recommend he follow-up with neurology You are always welcome to return to the ED. Prescriptions: No Action cholecalciferol (vitamin D3) 50 mcg (2,000 unit) tablet 50 mcg PO DAILY Qty: 90 0RF ibuprofen 600 mg tablet 600 mg PO Q8H PRN (Reason: pain) Qty: 20 0RF nystatin 100,000 unit/gram cream 1 appl topical BID PRN (Reason: rash) Qty: 15 0RF Referrals: [facility] [place] Rheumatology Service [Provider Group] [facility] [place] Neuro/Sleep [Provider Group] Radha Calle FNP [Primary Care Provider] - Manjinder Kaba MD [Physician] - Interventions: ED Discharge Assessment Last Done: 12/19/22 14:11 Discharge Date/Time: 12/19/22 14:12
[2022-12-19 11:16] VITALS: BP 136/71; PULSE 72; RESP 16; TEMP 37.1; O2SAT 100
[2022-12-19 11:56] LABS: C Reactive Protein < 0.10 mg/dL (< or = 0.50); Magnesium 2.1 mg/dL (1.6-2.6); Phosphorus 2.8 mg/dL (2.7-4.5)
[2022-12-19 12:31] LABS: Erythrocyte Sedimentation Rate 2 MM/HR (0-15)
[2022-12-19 13:01] LABS: Appearance Urine Clear; Color Urine Yellow; Glucose Urine UA Negative (Negative); Leukocyte Esterase Urine Negative (Negative); Nitrite Urine Negative (Negative); PH 7.5 (5.0-9.0); Urine Blood Negative (Negative); Urine Ketones 15 mg/dL (Negative); Urine Protein Negative (Neg-Trace)
[2022-12-19 13:31] VITALS: BP 129/73; PULSE 65; RESP 16; TEMP 36.8; O2SAT 99
== END 2022-12-19 14:12 | disposition home or self-care (01) ==
PROVIDERS: Physician Assistant; Emergency Provider Emergency Medicine; PCP Nurse Practitioner Family
DX: R51.9 Headache, unspecified (principal); M79.10 Myalgia, unspecified site
CPT/HCPCS: 36415; 80048; 81003; 82550; 83735; 84100; 84484; 85025; 85652; 86140; 93005; 99283; 99284

== ENCOUNTER 2022-12-19 14:30 | Outpatient (REF) | payer OTHER, SELFPAY ==
[2022-12-19 15:04] LABS: Estimated Average Glucose 97 mg/dL
[2022-12-19 15:38] LABS: Alanine Aminotransferase 21 U/L (0-40); Albumin Level 4.8 g/dL (3.5-5.0); Alkaline Phosphatase 72 U/L (39-117); Anion Gap 14 (12-20); Aspartate Amino Transferase 17 U/L (5-37); Blood Urea Nitrogen 12 mg/dL (9-16); Calcium 9.8 mg/dL (8.4-10.2); Carbon Dioxide 27 mmol/L (22-29); Chloride 104 mmol/L (96-108); Estimated Glomerular Filt Rate > 60; Glucose Fasting 83 mg/dL (60-99); Magnesium 2.3 mg/dL (1.6-2.6); Phosphorus 3.5 mg/dL (2.7-4.5); Potassium 4.4 mmol/L (3.3-5.1); Sodium 141 mmol/L (135-145); Total Protein 7.9 g/dL (6.5-8.0)
[2022-12-29 10:35] LABS: West Nile Virus IgM Antibody <0.90; West Nile Virus, IgG 1.54 index (<1.30)
== END 2022-12-19 14:31 | disposition home or self-care (01) ==
LOC: HO.LAB 14:30
PROVIDERS: PCP Nurse Practitioner Family; Visit Provider Nurse Practitioner Family
DX: R63.2 Polyphagia (principal); R25.3 Fasciculation
CPT/HCPCS: 36415; 80053; 83036; 83735; 84100; 86652; 86788; 86789

== ENCOUNTER 2022-12-27 10:30 | Outpatient (AMB) | payer OTHER, SELFPAY ==
--- NOTE | 2022-12-27 10:49 | MHC.OFFVIS ---
Intake Vital Signs 12/27/22 10:56 Height 5 ft 11 in Weight 138 lb 7.205 oz BMI 19.3 BP 134/76 Blood Pressure Location Rt brachial Position Sitting Pulse 77 Pulse Source Pulse Oximeter Temp 98.4 F Temp Source Skin Pulse Oximetry (%) 98 Intake Visit Reasons: arthralgia/[facility] ER REF Intake Note: New pt presents today for arthralgia consult. He c/o joint pain and body aches; inflammation in cervical spine and abdomen. Reports he had severe case of Covid from 03/2021-05/2021; mild case this past June. 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 Over the last 6 weeks patient has been having pain in his neck, chest, abdomen, muscles cramp up, tingling and numbness, headaches. He presented to the ER and no abnormality was found, he was referred to Rheumatology for further evaluation. Patient states that he has difficulty falling and staying asleep. He denies any significant recent traumatic event. He follows up regularly with a therapist. He is unaware of any family history of autoimmune rheumatic disease as he is adopted. [facility] Medical History Arthralgia Encounter to establish care Surgical History History of ear surgery History of rectal surgery Family History Mother Medical history unknown Father Medical history unknown Other Adopted person Social History Household Members: Other Household Members Other:: Roomate Housing: House Alcohol intake: current Alcohol intake frequency: 3 or more drinks per day Patient Tobacco Use Status: Never used Tobacco service: No Current occupational status: employed Current occupation: [employer] Cognitive needs: No Hearing needs: No Vision needs: No Review of Systems Const Reports fever(s), Reports headache(s) and Reports weakness Eyes Reports blurry vision, Reports diplopia, Reports dry eyes and Reports eye pain ENT Reports dizziness, Reports headache(s), Reports hoarseness, Reports neck pain and Reports tinnitus Card Reports chest pain at rest, Reports palpitations and Reports dyspnea Resp Reports cough and Reports dyspnea GI Reports constipation, Reports heartburn and Reports diarrhea Reports erectile dysfunction Musc Reports arthralgias, Reports neck pain and Reports numbness Skin/Breast Reports rash Neuro Reports dizziness, Reports headache(s), Reports numbness and Reports weakness Psych Reports abnormal sleep pattern, Reports anxiety and Reports depression Endo Reports polydipsia and Reports palpitations Physical Exam Vital Signs: Last Vital Signs Temp 98.4 F 12/27/22 10:56 Pulse 77 12/27/22 10:56 BP 134/76 12/27/22 10:56 Pulse Ox 98 12/27/22 10:56 BMI result Body Mass Index 19.3 Const General: cooperative, healthy appearing and comfortable Nutritional Appearance: average body habitus Orientation/consciousness: patient oriented x3 Limitations: no limitations HEENT Head: Yes normocephalic and Yes atraumatic Mouth: moist mucous membranes Resp Effort & Inspection: normal respiratory effort and able to speak in complete sentences Auscultation: clear to auscultation bilaterally Cardio Rate: regular rate Rhythm: regular rhythm Skin General skin exam: no rashes or lesions noted Neuro General: patient oriented x3 Extrem Other: No active synovitis Proximal muscle strength 5/5 all 4 limbs Few fibromyalgia tender points Assessment & Plan Assessment & Plan (1) Fibromyalgia, primary: Code(s): M79.7 - Fibromyalgia Plan: This is a 32-year-old male who presents for evaluation of 6 week history of diffuse pain including headaches, neck pain, abdominal pain, chest pain, muscle twitches, cramping, tingling, numbness . I do not see any signs of autoimmune rheumatic disease upon evaluation. Inflammatory markers are normal. Normal muscle enzymes. Clinical picture consistent with fibromyalgia Discussed management of fibromyalgia with patient. Is a noninflammatory, non-autoimmune central afferent processing disorder leading to a diffuse pain syndrome. Patient follows up regularly with a psychotherapist. I suggested evaluation by psychiatrist. . Try to follow sleep hygiene practices. Discuss CBT for sleep with psychotherapist. Consider referral for a sleep study from PCP. physical activity, either through formal physical therapy or by joining a gym. Advised patient that she should start activity slowly and increase as tolerated. Consider low-impact exercises such as walking, swimming, aqua therapy stretching, yog Follow-up in 9 months Coding Level of Care Code New Pt Level 3 (84520) Diagnoses Fibromyalgia, primary M79.7
[2022-12-27 10:56] VITALS: BP 134/76; PULSE 77; TEMP 36.9; O2SAT 98; BMI 19.3
== END 2022-12-27 11:39 | disposition home or self-care (01) ==
PROVIDERS: PCP Nurse Practitioner Family; Visit Provider Student in an Organized Health Care Education/Training Program
DX: M79.7 Fibromyalgia (principal)
CPT/HCPCS: 99203

== ENCOUNTER → 2022-12-27 10:30 | Outpatient (BNVA) | payer OTHER, SELFPAY | PROVIDERS: PCP Nurse Practitioner Family; Visit Provider Student in an Organized Health Care Education/Training Program | DX: M79.7 Fibromyalgia (principal) | CPT/HCPCS: 99202 ==

== ENCOUNTER 2022-12-27 14:45 | Outpatient (AMB) | payer OTHER, SELFPAY ==
--- NOTE | 2022-12-27 14:46 | A.OFFPC_ITS ---
Vital Signs 12/27/22 14:47 Height 5 ft 11 in Weight 139 lb BMI 19.4 BP 140/82 H Blood Pressure Location Lt brachial Position Sitting Pulse 76 Pulse Source Pulse Oximeter Pulse Oximetry (%) 100 Oxygen Delivery Method Room Air Intake Visit Reasons: continued general malaise Allergies cats Allergy (Intermediate, Uncoded 12/27/22 14:58) Runny Nose Pt states he has hx of hives;unsure of cause Adverse Reaction (Unknown, Uncoded 12/27/22 14:58) Unknown Medication List - Last Reconciled 12/27/22 by LEONOR Walter cholecalciferol (vitamin D3) 50 mcg PO DAILY diphenhydramine HCl (Benadryl Allergy) 25 mg PO TID PRN ibuprofen 600 mg PO Q8H PRN nystatin 1 appl topical BID PRN Tobacco use date assessed: 12/27/22 Dental Screening Dental Screen Date: 12/27/22 Did you have a dental visit in the last 12 months?: Yes Did you have a dental problem in the last 6 months where you did not have access to dental care?: No HPI continued general malaise HPI Details Patient is a 32-year-old male who presents today for the same day visit due to multiple concerns. Medical history significant for anxiety, depression, elevated fasting glucose, low vitamin-D level, body aches, headache, polyar thralgia, diarrhea, dry eyes, muscle twitching, double vision, back pain, cough, fibromyalgia-was diagnosed today by rheumatology, neck pain, GERD, intermittent left-sided chest pain. Patient reports these symptoms since beginning of this summer, he stopped drinking alcohol 11/2022. Reports acid reflux, reports taking Tums but no improvement. Reports intermittent left-sided chest pains at rest and with activity. Reports feeling stressed. Has therapist in [place]. Recommending patient to see Psychiatry-patient agreed to referral. 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 Reports neck pain worse with activity. Reports he did go to [facility] emergency department this weekend for neck pain, he reports everything was fine with his neck - will request records. Reports numbness and tingling in back of his head and front head. Patient was able to bring list with all of his symptoms, see scanned. 12/2022 Normal sinus rhythm with sinus arrhythmia Rightward axis Borderline ECG No previous ECGs available [facility] Medical History Arthralgia Encounter to establish care Surgical History History of ear surgery History of rectal surgery Family History Mother Medical history unknown Father Medical history unknown Other Adopted person Social History Household Members: Other Household Members Other:: Roomate Housing: House Alcohol intake: current Alcohol intake frequency: 3 or more drinks per day Patient Tobacco Use Status: Never used Tobacco service: No Current occupational status: employed 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 How often do you have a drink containing alcohol?: 2-3 times a week 2. How many drinks containing alcohol do you have on a typical day when you are drinking?: 3 or 4 3. How often do you have six or more drinks on one occasion?: Daily or almost daily Total Score: 8 Score Reviewed/Action Taken: Yes ARVIND-7 AMB Questionnaire ARVIND-7 Date ARVIND - 7 assessed: 09/27/22 Source: Developed by Drs. Scooter Briones, Lida Carey, Gerard Lakhani and colleagues, with an educational karol from [employer]. Review of Systems Const Reports as per HPI, Reports body aches, Reports chills, Reports fatigue, Reports fever(s), Reports headache(s), Reports night sweats and Reports weight loss Eyes Reports as per HPI, Reports blurry vision, Reports change in vision, Reports diplopia and Reports floaters ENT Reports as per HPI, Reports dizziness, Denies otalgia, Reports headache(s), Reports hoarseness, Denies nasal discharge, Reports neck pain, Denies sinus pain and Reports sore throat Card Details: Palpitations Reports as per HPI, Reports chest pain, Denies edema, Reports irregular heart rhythm, Denies lightheadedness, Denies dyspnea and Reports dyspnea on exertion Resp Reports cough, Denies dyspnea, Reports dyspnea on exertion and Denies wheezing GI Reports abdominal pain (Left), Reports bloating, Reports constipation, Reports dyspepsia, Reports heartburn, Reports diarrhea, Reports nausea and Denies vomiting Denies dysuria Musc Denies myalgias, Reports arthralgias, Reports neck pain, Reports numbness and Reports tingling Skin/Breast Denies rash Neuro Reports dizziness, Reports headache(s), Reports numbness and Reports tingling Psych Reports anxiety and Reports depression Endo Reports fatigue Aller/Immun Denies wheezing Physical exam (Primary Care) Vital Signs: Last Vital Signs Pulse 76 12/27/22 14:47 BP 140/82 H 12/27/22 14:47 Pulse Ox 100 12/27/22 14:47 Oxygen Delivery Method Room Air 12/27/22 14:47 BMI result Body Mass Index 19.4 Tobacco/Smoking Status: Tobacco use Status Tobacco use date assessed 12/27/22 12/27/22 14:48 Patient Tobacco Use Status Never used Tobacco 12/27/22 14:48 Thrive Assessment: Date of Thrive Assessment Date Thrive assessed 06/29/22 12/27/22 14:48 Const General: cooperative and no acute distress Orientation/consciousness: patient oriented x3 HENMT Head: Yes normocephalic and Yes atraumatic Face and sinus: Yes sinuses nontender Mouth: oropharynx normal and moist mucous membranes Throat: Yes posterior oropharynx normal Eyes General: appearance normal, both eyes and all related structures Pupils: Equal, round and reactive pupils present EOM: EOMs intact bilaterally Neck Neck: Yes normal visual inspection, Yes full ROM and Yes no lymphadenopathy Thyroid: Thyroid normal Chest Chest palpation & inspection: normal inspection of the chest and tenderness (Left anterior ribs/cartilage) Resp Effort & Inspection: normal respiratory effort and able to speak in complete sentences Auscultation: clear to auscultation bilaterally, no crackles, no rales, no rhonchi and no wheezes Cardio Rate: regular rate Rhythm: regular rhythm Heart sounds: S1 normal heart sound present, S2 normal heart sound present and no murmurs GI Inspection: Yes normal to inspection Palpation (GI): Soft to palpation, not firm, Tenderness to palpation present (GI) (mild mid abdomen ) with no rebound tenderness, no guarding, not rigid and no hepatosplenomegaly Auscultation: normal bowel sounds General: No CVA tenderness Back/Spine/Pelvis Back: No CVA tenderness Cervical Spine: cervical muscular tenderness, pain with cervical ROM and Cervical spine tenderness Skin General skin exam: no rashes or lesions noted Neuro General: patient oriented x3 Cranial nerves: Yes Equal, round and reactive pupils present Gait exam (Neuro): Normal gait present Extrem Other: Left ribs normal to inspection, very mild tenderness General: Yes full ROM and No edema Assessment and Plan Assessment & Plan (1) Intermittent left-sided chest pain: Code(s): R07.89 - Other chest pain Plan: Suspect musculoskeletal in origin due to physical exam with left sided chest tenderness - encouraged patient to try diclofenac cream p.r.n. Although will refer to Cardiology for an evaluation (2) GERD (gastroesophageal reflux disease): Code(s): K21.9 - Gastro-esophageal reflux disease without esophagitis Plan: Start omeprazole 20 mg daily Avoid GERD trigger foods Do not lay down 2-3 hours after evening meal GI referral (3) Neck pain: Code(s): M54.2 - Cervicalgia Plan: Suspect musculoskeletal in origin Patient is to continue ibuprofen p.r.n. or Tylenol p.r.n. Start tizanidine 2 mg b.i.d. p.r.n.-educated about drowsiness Encouraged heat/cold packs p.r.n. PT referral Will request records from [facility], patient was seen this past weekend (4) Routine screening for STI (sexually transmitted infection): Code(s): Z11.3 - Encounter for screening for infections with a predominantly sexual mode of transmission Plan: STI screening ordered per patient's request (5) Anxiety: Comment: followed by therapist Nelli Pro Code(s): F41.9 - Anxiety disorder, unspecified Plan: Start hydroxyzine 10 mg daily p.r.n.-educated about drowsiness Continue to follow-up with therapist Nelli Pro Psychiatry referral for an evaluation and treatment (6) Depression: Code(s): F32.A - Depression, unspecified Plan: Psychiatry referral for an evaluation and treatment Continue to follow-up with therapist Jonathan Keep appointment with PCP as scheduled or follow-up sooner as needed Signs and symptoms reviewed when to notify provider or go to the emergency department Patient agreed with the plan Orders: Orders CT NG by PCR Today Z11.3 - Encounter for screening for infections with a predominantly sexual mode of transmission Hepatitis B,C Profile Today Z11.3 - Encounter for screening for infections with a predominantly sexual mode of transmission HIV Ab/Ag Today Z11.3 - Encounter for screening for infections with a predominantly sexual mode of transmission Syphilis Screen Today Z11.3 - Encounter for screening for infections with a predominantly sexual mode of transmission PT Evaluation and Treatment Today M54.2 - Cervicalgia Referrals Gastroenterology Referral K21.9 - Gastro-esophageal reflux disease without esophagitis, R19.7 - Diarrhea, unspecified Psychiatry Referral F32.A - Depression, unspecified, F41.9 - Anxiety disorder, unspecified Cardiology Referral R07.89 - Other chest pain Medications: New tizanidine 2 mg PO BID PRN 14 tabs 0RF muscle spasticity M54.2 - Cervicalgia omeprazole 20 mg PO DAILY 30 caps 0RF K21.9 - Gastro-esophageal reflux disease without esophagitis hydroxyzine HCl 10 mg PO DAILY PRN 10 tabs 0RF anxiety F41.9 - Anxiety disorder, unspecified diclofenac sodium 1% (Arthritis Pain (diclofenac)) apply to single elbow, wrist or hand; for hand includes palm/fingers/back of hand 2 grams topical QID PRN 100 grams 0RF pain R07.89 - Other chest pain Coding Level of Care Code Est Pt Level 4 (00772) Diagnoses Intermittent left-sided chest pain R07.89 GERD (gastroesophageal reflux disease) K21.9 Neck pain M54.2 Routine screening for STI (sexually transmitted infection) Z11.3 Anxiety F41.9 Depression F32.A
[2022-12-27 14:47] VITALS: BP 140/82; PULSE 76; O2SAT 100; BMI 19.4
== END 2022-12-27 15:30 | disposition home or self-care (01) ==
PROVIDERS: PCP Nurse Practitioner Family; Visit Provider Nurse Practitioner Family
DX: R07.89 Other chest pain (principal); K21.9 Gastro-esophageal reflux disease without esophagitis; F41.9 Anxiety disorder, unspecified; M54.2 Cervicalgia; Z11.3 Encounter for screening for infections with a predominantly sexual mode of transmission; F32.A Depression, unspecified
CPT/HCPCS: 99214

== ENCOUNTER 2023-01-04 13:54 | Outpatient (AMB) | payer OTHER, SELFPAY ==
--- NOTE | 2023-01-04 14:02 | MHC.OFFVIS ---
Intake Vital Signs 01/04/23 14:03 Height 5 ft 11 in Weight 138 lb BMI 19.2 BP 143/85 H Blood Pressure Location Lt brachial Position Sitting Pulse 76 Intake Visit Reasons: Diarrhea, GERD Intake Note: Patient new consult for diarrhea and GERD. Patient cc: weight loss, LUQ pain, some abdominal burning sensation, abdominal bloating and fullness, swallowing problems and between diarrhea and constipation. Allergies cats Allergy (Intermediate, Uncoded 12/27/22 14:58) Runny Nose Pt states he has hx of hives;unsure of cause Adverse Reaction (Unknown, Uncoded 12/27/22 14:58) Unknown HPI HPI Comments History of Present Illness Details A 32-year-old male referred with multiple GI complaints Whenever he eats-belly was bloated- felt full A couple times mid abdomen- other time elsewhwere Some times when on toilet has feeling of constipation Has alternating stool Diarrhea x 6 weeks 1 QOD or 2-3 times a day Wandering abdominal pain- twinges if he eats, drinks, or swallows feels hoarse- he took tums- a couple weeks ago He lost about 5 pounds past few weeks No travels About 4 weeks ago- he was given doxy4 doses/ amox 2 dose for possible lyme- he then stopped on his own due to messing up his back, From August to November- he drank a lot of alcohol, eat fast food/ processed-foods- is worried this messed him up He has depression, anxiety stress- he is awaiting appt with psych-sched in April, Went to [facility] with headacche, blur vision- CT - nothing found He has requested a intermodal owner operator truck driver consult by his pcp- high blood pressure. Brain fog, not sure if he should look for viral or infectious cause- he is working with pcp HPI narrative: ?32-year-old male with a past medical history depression, anxiety, polyarthralgia, presenting to the ED complaining of diffuse myalgias, muscle twitching, left-sided temporal headache, palpitations with feeling like I was having a heart attack last night. Patient has been seen and treated by multiple providers in the past few weeks including [facility] ED, [facility], this ED, & PCP x2 visits most recently yesterday, for similar symptoms, has had negative labs, head CT, and Lyme titer. DILAN titers currently pending. Patient was on course of Doxycycline which was changed to Amoxicillin secondary to worsening symptoms, self stop Amoxicillin last week. Admits chest pain improved at present.? Denies SOB, abdominal pain, nausea /vomiting, vision loss [facility] Medical History (Updated 01/09/23 @ 11:03 by Leta Yoder PA-C) Arthralgia Encounter to establish care Surgical History History of ear surgery History of rectal surgery Family History Mother Medical history unknown Father Medical history unknown Other Adopted person Social History Household Members: Other Household Members Other:: Roomate Housing: House Alcohol intake: current Alcohol intake frequency: 3 or more drinks per day Patient Tobacco Use Status: Never used Tobacco service: No Current occupational status: employed 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 Cognitive needs: No Hearing needs: No Vision needs: No Review of Systems Const All systems reviewed & are unremarkable except as noted in HPI and below Denies chills, Reports fatigue and Denies fever(s) Card Reports dyspnea on exertion Resp Reports dyspnea on exertion GI Reports abdominal pain, Reports bloating, Reports change in bowel habits, Reports change in stool character, Reports constipation, Reports early satiety, Reports dyspepsia, Reports diarrhea, Reports nausea and Denies hematemesis Psych Reports anxiety, Reports difficulty concentrating, Denies homicidal ideation and Denies suicidal ideation Endo Reports fatigue Aller/Immun Reports GI upset with certain foods Physical Exam Vital Signs: Last Vital Signs Pulse 76 01/04/23 14:03 BP 143/85 H 01/04/23 14:03 BMI result Body Mass Index 19.2 Const General: cooperative, healthy appearing, comfortable and no acute distress; No diaphoretic Nutritional Appearance: thin Orientation/consciousness: patient oriented x3 Eyes Sclerae: sclerae normal Resp Effort & Inspection: normal respiratory effort and able to speak in complete sentences Auscultation: clear to auscultation bilaterally, no rales, no rhonchi and no wheezes Cardio Rate: regular rate Rhythm: regular rhythm Heart sounds: S1 normal heart sound present and S2 normal heart sound present GI Palpation (GI): Soft to palpation and nontender Percussion: Yes normal to percussion Auscultation: normal bowel sounds Skin General skin exam: no rashes or lesions noted Hair: normal Neuro General: patient oriented x3 Extrem General: Yes full ROM Psych Appearance: grossly normal and well kempt Speech and movement: Clear speech present and Pressured speech present Affect: Animated affect present and Anxious affect present Attitude: cooperative Thought process: Flight of ideas present Assessment & Plan Assessment & Plan (1) Diarrhea: Comment: He is extremely anxious- pressured speech Code(s): R19.7 - Diarrhea, unspecified (2) Anxiety: Comment: likely fuctional component Code(s): F41.9 - Anxiety disorder, unspecified Plan: Needs further eval- benefir from psych- scheduled in Apr. (3) GERD (gastroesophageal reflux disease): Comment: declines ppi-he wants to take tums Code(s): K21.9 - Gastro-esophageal reflux disease without esophagitis (4) Anxiety about health: Comment: difficult to assess- focus attempted reassurance - Code(s): F41.8 - Other specified anxiety disorders Plan Labs, stool studies- F/U with an MD- Orders: Orders Calprotectin, Fecal 01/05/23 R19.7 - Diarrhea, unspecified C Reactive Protein 01/04/23 R19.7 - Diarrhea, unspecified Thyroid Stimulating Hormone 01/04/23 R19.8 - Other specified symptoms and signs involving the digestive system and abdomen Erythrocyte Sedimentation Rate 01/04/23 R19.7 - Diarrhea, unspecified Endomysial IgA rflx Titer 01/04/23 R19.7 - Diarrhea, unspecified Transglutaminase IgA 01/04/23 R19.7 - Diarrhea, unspecified CDiff Gene PCR 01/05/23 R19.7 - Diarrhea, unspecified GI Panel 01/05/23 R19.7 - Diarrhea, unspecified FL upper GI small bowel 01/04/23 K21.9 - Gastro-esophageal reflux disease without esophagitis, R19.7 - Diarrhea, unspecified Medications: New methylcellulose (laxative) (Citrucel) 500 mg PO TID 30 days 90 tabs 5RF Patient Instructions: jeet Chris 32 y/o male with multiple GI and general complaints- will take tums - his preference for heartburn Will get labs/ stool tests to r/o infectious cause of sx- Will see back with MD- for further eval. He agrees to the plan Coding Level of Care Code New Pt Level 4 (39163) Diagnoses Diarrhea R19.7 Anxiety F41.9 GERD (gastroesophageal reflux disease) K21.9 Anxiety about health F41.8 Time Spent (min) 40
[2023-01-04 14:03] VITALS: BP 143/85; PULSE 76; BMI 19.2
== END 2023-01-04 15:40 | disposition home or self-care (01) ==
PROVIDERS: PCP Nurse Practitioner Family; Visit Provider Physician Assistant
DX: R19.7 Diarrhea, unspecified (principal); F41.9 Anxiety disorder, unspecified; K21.9 Gastro-esophageal reflux disease without esophagitis; F41.8 Other specified anxiety disorders
CPT/HCPCS: 99204

== ENCOUNTER 2023-01-04 13:54 | Outpatient (REF) | payer OTHER, SELFPAY ==
[2023-01-04 16:31] LABS: Erythrocyte Sedimentation Rate 4 MM/HR (0-15)
[2023-01-04 17:05] LABS: C Reactive Protein 0.33 mg/dL (< or = 0.50)
[2023-01-04 17:21] LABS: Thyroid Stimulating Hormone 1.46 uIU/mL (0.32-4.0)
[2023-01-04 17:31] LABS: CT PCR NOT DETECTED (Not Detect.); NG PCR NOT DETECTED (Not Detect.)
[2023-01-05 08:05] LABS: HBsAGNum1 0.36 S/CO (0.00-0.99); HIV AB/AG Nonreactive (Nonreactive); HIV Num 1 0.08 S/CO (0.00-0.99); Hepatitis B Surface Antigen Negative (Negative); ~HepC Num1 0.05 S/CO (0.00-0.79); ~Hepatitis B Surface Antibody REACTIVE (Nonreactive); ~Hepatitis C Antibody Nonreactive (Nonreactive)
[2023-01-05 08:25] LABS: Syphilis Screen Nonreactive (Nonreactive)
[2023-01-05 11:43] LABS: HBc Num3 2.61 S/CO; Hepatitis B Core Antibody Reactive (Nonreactive)
[2023-01-09 14:39] LABS: Endomysial IgA Antibody Negative (Negative)
[2023-01-09 21:18] LABS: Transglutaminase IgA <1.0 U/mL
== END 2023-01-04 13:55 | disposition home or self-care (01) ==
LOC: HO.LAB 13:54
PROVIDERS: PCP Nurse Practitioner Family; Visit Provider Physician Assistant
DX: Z11.3 Encounter for screening for infections with a predominantly sexual mode of transmission (principal); Z11.4 Encounter for screening for human immunodeficiency virus [HIV]; R19.7 Diarrhea, unspecified; R19.8 Other specified symptoms and signs involving the digestive system and abdomen; F41.9 Anxiety disorder, unspecified; K21.9 Gastro-esophageal reflux disease without esophagitis; F41.8 Other specified anxiety disorders
CPT/HCPCS: 0353U; 36415; 84443; 85652; 86140; 86231; 86364; 86704; 86706; 86780; 86803; 87340; 87389; 99202

== ENCOUNTER 2023-01-05 16:12 | Outpatient (REF) | payer OTHER, SELFPAY ==
[2023-01-05 18:33] LABS: CDiff Gene PCR NEGATIVE (Negative)
[2023-01-06 13:48] LABS: Campylobacter Not Detected (Not Detect.); Plesiomonas shigelloides Not Detected (Not Detect.); Salmonella Not Detected (Not Detect.); Vibrio Not Detected (Not Detect.); Vibrio Cholerae Not Detected (Not Detect.)
[2023-01-06 13:49] LABS: Adenovirus F 40/41 Not Detected (Not Detect.); Astrovirus Not Detected (Not Detect.); Cryptosporidium Not Detected (Not Detect.); Cyclospora cayetanensis Not Detected (Not Detect.); E. coli EAEC Not Detected (Not Detect.); E. coli EPEC Not Detected (Not Detect.); E. coli ETEC Not Detected (Not Detect.); E. coli STEC Not Detected (Not Detect.); Entamoeba histolytica Not Detected (Not Detect.); Giardia lamblia Not Detected (Not Detect.); Norovirus GI/GII Not Detected (Not Detect.); Rotavirus A Not Detected (Not Detect.); Sapovirus Not Detected (Not Detect.); Shigella sp./EIEC Not Detected (Not Detect.); Yersinia enterocolitica Not Detected (Not Detect.)
[2023-01-12 22:09] LABS: Calprotectin, Fecal 32 mcg/g
== END 2023-01-05 16:13 | disposition home or self-care (01) ==
LOC: HO.LNP 16:12
PROVIDERS: Visit Provider Physician Assistant
DX: R19.7 Diarrhea, unspecified (principal)
CPT/HCPCS: 83993; 87493; 87507

== ENCOUNTER 2023-01-12 07:29 | Outpatient (REF) | payer OTHER, SELFPAY ==
--- NOTE | ~2023-01-12 | FL_ITS ---
EXAMINATION: XR UPPER GI SERIES WITH SMALL BOWEL CLINICAL INFORMATION: Gastroesophageal reflux disease without esophagitis COMPARISON: None available. TECHNIQUE: Analytical Engineer film was performed. Upper GI and small bowel follow-through was performed using thin and thick barium and effervescent granules. FINDINGS: Analytical Engineer film is unremarkable. Esophageal motility is normal. There is gastroesophageal reflux. No esophageal hernia is seen. The stomach and duodenum are normal-appearing. No fold thickening, mass, ulcer or stricture is seen. Small bowel motility is normal. Contrast reaches the large bowel by 60 minutes. Evaluation of distal small bowel is slightly limited due to location in the low pelvis. No small bowel abnormality is seen. Small bowel mucosal pattern is normal. No small bowel mass, abnormal folds or evidence of obstruction. FLUOROSCOPY TIME: 1.1 minutes DOSE AREA PRODUCT: 9.3 hylton per centimeter squared. Total dose 29 mgy. 34 saved fluoroscopic images FL/FL upper GI small bowel IMPRESSION: Significant gastroesophageal reflux. Otherwise unremarkable upper GI and small bowel follow-through.
== END 2023-01-12 07:30 | disposition home or self-care (01) ==
LOC: HO.XRAY 07:29
PROVIDERS: PCP Nurse Practitioner Family; Visit Provider Physician Assistant
DX: K21.9 Gastro-esophageal reflux disease without esophagitis (principal); R19.7 Diarrhea, unspecified
CPT/HCPCS: 74240; 74248

== ENCOUNTER → 2023-01-12 07:31 | Outpatient (BNV) | payer OTHER, SELFPAY | PROVIDERS: PCP Nurse Practitioner Family; Visit Provider Radiology Diagnostic Radiology | DX: K21.9 Gastro-esophageal reflux disease without esophagitis (principal); R19.7 Diarrhea, unspecified | CPT/HCPCS: 74246; 74248 ==

== ENCOUNTER 2023-01-16 13:12 | Outpatient (AMB) | payer OTHER, SELFPAY ==
[2023-01-16 13:16] VITALS: BP 136/78; PULSE 73; O2SAT 98; BMI 19.9
--- NOTE | 2023-01-16 13:16 | MHC.PC.OV ---
Vital Signs 01/16/23 13:16 Height 5 ft 11 in Weight 143 lb 0.8 oz BMI 19.9 BP 136/78 Blood Pressure Location Lt brachial Position Sitting Pulse 73 Pulse Source Pulse Oximeter Temp Source Skin Pulse Oximetry (%) 98 Oxygen Delivery Method Room Air Intake Visit Reasons: F/U headache Manager Report Required: No Allergies cats Allergy (Intermediate, Uncoded 01/16/23 13:34) Runny Nose Pt states he has hx of hives;unsure of cause Adverse Reaction (Unknown, Uncoded 01/16/23 13:34) Unknown Medication List - Last Reconciled 01/16/23 by LEONOR Walter azithromycin take 500 mg today (day 1), then 250 mg for 4 days (days 2-5) PO cholecalciferol (vitamin D3) 50 mcg PO DAILY ibuprofen 600 mg PO Q8H PRN methylcellulose (laxative) (Citrucel) 500 mg PO TID 30 days vitamin B complex (B Complex-Vitamin B12 tablet) 1 tab PO DAILY Tobacco use date assessed: 01/16/23 HPI F/U headache HPI Details Patient is a 32-year-old male who presents today to follow-up on headache. Medical history significant for anxiety, depression, elevated fasting glucose, low vitamin-D level, body aches, headache, polyarthralgia, diarrhea, dry eyes, muscle twitching, double vision, back pain, fibromyalgia- diagnosed by rheumatology, neck pain - will be starting physical therapy, GERD, blocked sensation in ears, maxillary cysts - has referral to see ENT specialist. Patient reports these symptoms since beginning of this summer, he stopped drinking alcohol 11/2022. Has therapist in [place] - who is working on obtaining psychiatrist for the patient, patient also has a referral to psychiatrist from PCP. Reports neck pain worse with activity. Reports pressure and tingling sensation on forehead. Reports intermittent burning sensation on his back, hands, feet. Reports hair loss lately - recent blood work results reviewed with the patient with no acute findings. Reports night sweats. He has an upcoming appointment with [facility] 02/01/2023. Patient reports he will be seeing a chiropractor tomorrow. Reports intermittent headaches that are not bad. Also reports ringing in both ears. Reports chronic low back pain would like to have physical therapy for this. Denies SI. 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 How often do you have a drink containing alcohol?: 2-3 times a week 2. How many drinks containing alcohol do you have on a typical day when you are drinking?: 3 or 4 3. How often do you have six or more drinks on one occasion?: Daily or almost daily Total Score: 8 Score Reviewed/Action Taken: Yes ARVIND-7 AMB Questionnaire ARVIND-7 Date ARVIND - 7 assessed: 09/27/22 Source: Developed by Drs. Scooter Briones, Lida Carey, Gerard Lakhani and colleagues, with an educational karol from [employer]. Review of Systems Const Reports body aches, Reports chills, Reports fatigue, Reports headache(s), Reports night sweats and Reports weight loss Eyes Reports blurry vision, Reports change in vision, Reports diplopia and Reports floaters ENT Reports dizziness, Denies otalgia, Reports headache(s), Reports hoarseness, Denies nasal discharge, Reports neck pain, Denies sinus pain and Reports sore throat Card Details: Palpitations Reports chest pain, Denies edema, Reports irregular heart rhythm, Denies lightheadedness, Denies dyspnea and Reports dyspnea on exertion Resp Reports cough, Denies dyspnea, Reports dyspnea on exertion and Denies wheezing GI Denies abdominal pain, Reports bloating, Reports constipation, Reports dyspepsia, Reports heartburn, Reports diarrhea, Reports nausea and Denies vomiting Denies dysuria Musc Reports back pain, Denies myalgias, Reports arthralgias, Reports neck pain, Reports numbness and Reports tingling Skin/Breast Denies rash Neuro Reports dizziness, Reports headache(s), Reports numbness and Reports tingling Psych Reports anxiety and Reports depression Endo Reports fatigue Aller/Immun Denies wheezing Physical exam (Primary Care) Vital Signs: Last Vital Signs Pulse 73 01/16/23 13:16 BP 136/78 01/16/23 13:16 Pulse Ox 98 01/16/23 13:16 Oxygen Delivery Method Room Air 01/16/23 13:16 BMI result Body Mass Index 19.9 Tobacco/Smoking Status: Tobacco use Status Tobacco use date assessed 01/16/23 01/16/23 13:17 Patient Tobacco Use Status Never used Tobacco 01/16/23 13:17 Thrive Assessment: Date of Thrive Assessment Date Thrive assessed 06/29/22 01/16/23 13:17 Const General: cooperative and no acute distress Orientation/consciousness: patient oriented x3 HENMT Other: Very mild cerumen noted to bilateral ear canals, visualized TMs normal, no erythema Head: Yes normocephalic and Yes atraumatic Face and sinus: Yes sinuses nontender Mouth: oropharynx normal and moist mucous membranes Throat: Yes posterior oropharynx normal Eyes General: appearance normal, both eyes and all related structures Pupils: Equal, round and reactive pupils present EOM: EOMs intact bilaterally Neck Neck: Yes normal visual inspection, Yes full ROM and Yes no lymphadenopathy Thyroid: Thyroid normal Chest Chest palpation & inspection: normal inspection of the chest Resp Effort & Inspection: normal respiratory effort and able to speak in complete sentences Auscultation: clear to auscultation bilaterally, no crackles, no rales, no rhonchi and no wheezes Cardio Rate: regular rate Rhythm: regular rhythm Heart sounds: S1 normal heart sound present, S2 normal heart sound present and no murmurs GI Auscultation: normal bowel sounds Skin General skin exam: no rashes or lesions noted Neuro General: patient oriented x3 Cranial nerves: Yes Equal, round and reactive pupils present Gait exam (Neuro): Normal gait present Extrem General: Yes full ROM and No edema Assessment and Plan Assessment & Plan (1) Screening for tuberculosis: Code(s): Z11.1 - Encounter for screening for respiratory tuberculosis (2) Maxillary cyst: Code(s): M27.40 - Unspecified cyst of jaw Plan: Patient has referral to see ENT specialist Recently finished antibiotic for sinusitis (3) Blocked ear: Code(s): H93.8X9 - Other specified disorders of ear, unspecified ear Plan: Will treat with Flonase nasal spray daily Patient also has referral to see ENT specialist (4) Neck pain: Code(s): M54.2 - Cervicalgia Plan: Patient will be starting physical therapy for neck pain Continue ibuprofen 600 mg every 8 hours p.r.n. Start tizanidine 2 mg at bedtime p.r.n.-educated about drowsiness Also patient can try heat/cold packs p.r.n. (5) Back pain: Code(s): M54.9 - Dorsalgia, unspecified Plan: Physical therapy referral Continue ibuprofen 600 mg every 8 hours p.r.n. Start tizanidine 2 mg at bedtime p.r.n.-educated about drowsiness Also patient can try heat/cold packs p.r.n. (6) Headache: Code(s): R51.9 - Headache, unspecified Plan: Continue ibuprofen 600 mg every 8 hours p.r.n. Patient reports intermittent headaches that are not bad lately Patient has an upcoming appointment with [facility] 02/01/2023 Plan Follow-up in 1 month-will request follow-up with a MD - patient agreed with the plan Orders: Orders PT Evaluation and Treatment Today M54.9 - Dorsalgia, unspecified T Spot TB Today Z11.1 - Encounter for screening for respiratory tuberculosis Medications: New fluticasone propionate 50 mcg/actuation (Flonase Allergy Relief) administer into each nostril 1 spray intranasal DAILY 100 mL 0RF H93.8X9 - Other specified disorders of ear, unspecified ear tizanidine 2 mg PO BEDTIME PRN 14 tabs 0RF muscle spasticity M54.2 - Cervicalgia, M54.9 - Dorsalgia, unspecified Discontinued azithromycin Discontinued Reason: Patient no longer taking take 500 mg today (day 1), then 250 mg for 4 days (days 2-5) PO 6 tabs 0RF J32.9 - Chronic sinusitis, unspecified Coding Level of Care Code Est Pt Level 3 (57327) Diagnoses Screening for tuberculosis Z11.1 Maxillary cyst M27.40 Blocked ear H93.8X9 Neck pain M54.2 Back pain M54.9 Headache R51.9
== END 2023-01-16 14:17 | disposition home or self-care (01) ==
PROVIDERS: Visit Provider Nurse Practitioner Family
DX: Z11.1 Encounter for screening for respiratory tuberculosis (principal); M27.40 Unspecified cyst of jaw; H93.8X9 Other specified disorders of ear, unspecified ear; M54.2 Cervicalgia; M54.9 Dorsalgia, unspecified; R51.9 Headache, unspecified
CPT/HCPCS: 99213

== ENCOUNTER 2023-01-23 09:28 | Outpatient (AMB) | payer OTHER, SELFPAY ==
--- NOTE | 2023-01-23 09:30 | A.OFFVIS_ITS ---
Intake Vital Signs 01/23/23 09:32 Height 5 ft 11 in Weight 141 lb 1.533 oz BMI 19.7 BP 141/84 H Blood Pressure Location Lt brachial Position Sitting Pulse 83 Intake Visit Reasons: Diarrhea, GERD Intake Note: Truong presents in the office as a follow up for diarrhea and GERD. CC: He states that he had a BA swallow and it states that he did not have inflammation. When he initially came here he said he had issues with a dry cough and trouble swallowing that causes the dry cough. His throat has been hurting as of yesterday. He states that he is constantly having diarrhea but he has switched up his diet and his stool has been more solid. Constant flatulence and gurgling in his abdomen. He has not been able to control his flatulence. He also feels like the food is bouncing off his larynx or if has a lump in his throat. Apartment Maintenance Manager Required: No Allergies cats Allergy (Intermediate, Uncoded 01/23/23 09:32) Runny Nose Pt states he has hx of hives;unsure of cause Adverse Reaction (Unknown, Uncoded 01/23/23 09:32) Unknown HPI HPI Comments History of Present Illness Details This is a 32y.o M with PMH of fibromyalgia, who has recently been seen by multiple providers for myriad of sx including chest pain, headaches, double vision, diffuse body aches who is here for GI complaints as below. Reports hoarseness and pain on swallowing certain textures of food such as muffins. Also reports frequent heartburn. In addition also reports diarrhea which ranges from mushy to soft 1-2 times a day. Not assoc with abd pain, blood in stool, tenesmus, unintentional weight loss. Initially reported onset half a year ago, then later reported sx had sudden onset in mid November when he thought he had Lyme's and since then has taken multiple Abx courses. Was seen by Richard Yoder at last visit. Testing and results reviewed which show normal celiac serology, fecal calpro, hyperthyroidism. UGIS series reviewed and show reflux but otherwise normal. Pt is adopted and not familiar with fam hx for CRC or IBD. 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 Cognitive needs: No Hearing needs: No Vision needs: No Review of Systems Const All systems reviewed & are unremarkable except as noted in HPI and below Physical Exam Vital Signs: Last Vital Signs Pulse 83 01/23/23 09:32 BP 141/84 H 01/23/23 09:32 BMI result Body Mass Index 19.7 Gen appear: NAD HEENT: nonicteric, no cervical lymphadenopathy Chest: CTA CVS: Regular S1/S2 Abd: soft, nontender, nondistended, bowel sounds + Ext: no peripheral edema Neuro: A/Ox3, noted to move all extremities spontaneously Psych: interacting appropriately Assessment & Plan Assessment & Plan (1) GERD (gastroesophageal reflux disease): Code(s): K21.9 - Gastro-esophageal reflux disease without esophagitis Plan: Based on sx burden, will start with pepcid first and escalate to PPI if needed. Plan: - Famotidine 10mg BID x 8 weeks and then once daily x 4 week - Follow up in 3 months for sx re-evaluation - If persistent sx or recur on dose decrease, will proceed with EGD w/ bx. 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 Has had good response to increasing fiber alone, stools changed from mushy to formed. Pt was reassured multiple times that at this point, low likelihood of malabsorption, celiac, inflammation or infection based on work up so far. He was also informed that taking back to back Abx (doxy --> amoxicillin --> amoxi/clav) can also predispose to Abx related diarrhea. C Diff neg. - Encouraged to keep a food diary and to avoid trigger foods. - Can take Imodium as needed - pt declines at this point. Plan Follow up in 3 months for upper GI sx - can follow back with [facility] [place] Medications: New famotidine 10 mg PO BID 8 weeks 112 tabs 1RF Coding Level of Care Code Est Pt Level 4 (35257) Diagnoses GERD (gastroesophageal reflux disease) K21.9 Diarrhea R19.7
[2023-01-23 09:32] VITALS: BP 141/84; PULSE 83; BMI 19.7
== END 2023-01-23 10:11 | disposition home or self-care (01) ==
PROVIDERS: PCP Nurse Practitioner Family; Visit Provider Internal Medicine
DX: K21.9 Gastro-esophageal reflux disease without esophagitis (principal); R19.7 Diarrhea, unspecified
CPT/HCPCS: 99214

== ENCOUNTER → 2023-01-23 09:28 | Outpatient (BNVA) | payer OTHER, SELFPAY | PROVIDERS: PCP Nurse Practitioner Family; Visit Provider Internal Medicine | DX: K21.9 Gastro-esophageal reflux disease without esophagitis (principal); R19.7 Diarrhea, unspecified | CPT/HCPCS: 99212 ==

== ENCOUNTER 2023-02-16 13:37 | Outpatient (AMB) | payer OTHER, SELFPAY ==
[2023-02-16 13:41] VITALS: BP 134/84; PULSE 80; O2SAT 98; BMI 19.9
--- NOTE | 2023-02-16 13:41 | A.OFFPC_ITS ---
Vital Signs 02/16/23 13:41 Height 5 ft 11 in Weight 142 lb 6 oz BMI 19.9 BP 134/84 Blood Pressure Location Lt brachial Position Sitting Pulse 80 Pulse Source Pulse Oximeter Pulse Oximetry (%) 98 Oxygen Delivery Method Room Air Intake Visit Reasons: f/u Headache (Per Radha Calle) Intake Note: Pt is here for ongoing multiple health issue that has developed and yet been di agnosed. Ict Business Development Manager Required: No Accompanied by: Self / Same As Patient Allergies Penicillins Allergy (Intermediate, Verified 02/16/23 14:36) hives doxycycline Adverse Reaction (Intermediate, Verified 02/16/23 14:35) throbbing headaches cats Allergy (Intermediate, Uncoded 02/16/23 14:11) Runny Nose Pt states he has hx of hives;unsure of cause Adverse Reaction (Unknown, Uncoded 02/16/23 14:11) Unknown Medication List - Last Reconciled 02/16/23 by Gabe Valentine MD famotidine 10 mg PO BID 8 weeks fluticasone propionate 50 mcg/actuation (Flonase Allergy Relief) 1 spray intranasal DAILY multivitamin 1 tab PO DAILY tizanidine 2 mg PO BEDTIME PRN Tobacco use date assessed: 01/16/23 HPI f/u Headache (Per Radha Calle) HPI Details Patient comes in today for his follow up visit Patient has been seeing our nurse practitioners here in the office but was asked to see me instead today to try to make some sense of his numerous complaints Patient states that he has been experiencing recurrent headaches since late October 2022 Has also been complaining of problems with his eyesight, which she describes as a deteriorating ability to see both close-up and far away, which does not really make much sense He also reports difficulty tolerating bright lights and states that his eye symptoms have not improved at all despite attempts correct them with prescription eyeglasses He has had several workups done so far over the past few months, including labs as well as a head CT and head MRI, all of which came back normal /negative He has also had extensive labs done including serologies - positive results include IgG antibodies for both CMV and West Nile virus but IgM antibodies were negative He was also tested for hepatitis-B and C and Darrius-Matthews virus, all of which came back negative He currently has some additional labs pending, including a Lyme disease titer He has been seen by neurology (Dr. Davi Huber in [place]) recently and has a follow-up appointment with him on 05/24/2023 He is also scheduled to have an EMG and NCV done on 05/14/2023 for further evaluation Patient feels that a lot of his symptoms started after he has had COVID infections twice over the past couple of years Recalls frederick COVID for the 1st time back in March 2021 and states that his symptoms were pretty severe at the time and lasted mostly from March 2021 to May 2021 He tested positive for COVID again earlier this year in June 2022 although his symptoms this time were not as bad as the 1st time He is also complaining of multiple other nonspecific symptoms including recurrent burning sensation in feet and hands, recurrent trembling sensation in his arms and legs as well as shaking and twitching in various parts of his body at night when he is trying to sleep He also reports frequent sweating, temperature intolerance, recurrent headaches, dizziness, increased fatigue and frequent sensation of brain fog and memory impairment as well as difficulty in handwriting, nonspecific cramping of his calf muscles and myalgias and unexplained random muscle weakness, recurrent redness of both his palms and feet as well as on and off diarrhea and on and off palpitations He has had an EKG done a couple months ago on 12/19/2022 which came out completely normal Lastly patient states that he was adopted from the [facility] back when he was 1-1/2 years old so he has no information at all about relevant family history Adds that he is also scheduled to see an infectious disease specialist sometime soon and appears quite perturbed and anxious about not getting any answers regarding all of his numerous nonspecific complaints and issues [facility] Medical History (Updated 02/16/23 @ 23:17 by Gabe Valentine MD) Arthralgia Surgical History History of ear surgery History of rectal surgery Family History Mother Medical history unknown Father Medical history unknown Other Adopted person Social History Household Members: Other Household Members Other:: Roomate Housing: House Alcohol intake: current Alcohol intake frequency: 3 or more drinks per day Patient Tobacco Use Status: Never used Tobacco service: No Current occupational status: employed 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 Scooter Briones, Lida Carey, Gerard Lakhani and colleagues, with an educational karol from [employer]. Review of Systems Const Reports body aches, Reports fatigue, Reports headache(s) (recurrent), Reports malaise and Reports weakness Eyes Reports blurry vision and Reports photophobia ENT Denies dysphagia, Reports dizziness, Denies otalgia, Reports headache(s) (recurrent), Reports neck pain and Denies sore throat Card Reports chest pain (on and off), Denies pedal edema, Denies lightheadedness, Reports palpitations (intermittent palpitations) and Reports dyspnea (on and off) Resp Reports dyspnea (on and off) GI Denies abdominal pain, Reports bloating, Denies dysphagia, Reports diarrhea (occasional), Denies nausea and Denies vomiting Musc Reports myalgias, Reports arthralgias (involving multiple joints), Reports muscle cramps (especially of the calf muscles, on and off), Reports neck pain, Reports numbness and Reports tingling (on and off in both hands and feet) Skin/Breast Reports rash (recurrent red rash over his palms and soles) Neuro Reports confusion, Reports dizziness, Reports headache(s) (recurrent), Reports memory loss, Reports numbness, Reports tingling (on and off in both hands and feet), Reports paresthesias, Reports tremor(s) (see HPI) and Reports weakness Psych Reports anxiety, Reports confusion, Reports irritability and Reports memory loss Endo Reports cold intolerance, Reports fatigue, Reports heat intolerance and Reports palpitations (intermittent palpitations) Physical exam (Primary Care) Vital Signs: Last Vital Signs Pulse 80 02/16/23 13:41 BP 134/84 02/16/23 13:41 Pulse Ox 98 02/16/23 13:41 Oxygen Delivery Method Room Air 02/16/23 13:41 BMI result Body Mass Index 19.9 Tobacco/Smoking Status: Tobacco use Status Tobacco use date assessed 01/16/23 02/16/23 13:42 Patient Tobacco Use Status Never used Tobacco 02/16/23 13:42 Thrive Assessment: Date of Thrive Assessment Date Thrive assessed 06/29/22 02/16/23 13:42 Const General: confusion Orientation/consciousness: confusion HENMT Ears: TM's normal bilaterally and EAC's normal Throat: Yes posterior oropharynx normal and Yes tonsils normal (no TP congestion) Eyes Direct Ophthalmoscopy: photophobia Neck Neck: Yes no lymphadenopathy and Yes supple Resp Auscultation: clear to auscultation bilaterally, no rales and no wheezes Cardio Rate: regular rate Rhythm: regular rhythm Heart sounds: no murmurs GI Palpation (GI): Soft to palpation and nontender Auscultation: normal bowel sounds Neuro General: confusion Extrem General: Yes no clubbing, cyanosis or edema Assessment and Plan Assessment & Plan (1) Intermittent palpitations: Code(s): R00.2 - Palpitations (2) Chest pain: Code(s): R07.9 - Chest pain, unspecified Qualifiers: Chest pain type: unspecified Qualified Code(s): R07.9 - Chest pain, unspecified (3) Headache: Code(s): R51.9 - Headache, unspecified Qualifiers: Headache type: unspecified Headache chronicity pattern: unspecified pattern Intractability: not intractable Qualified Code(s): R51.9 - Headache, unspecified (4) Polyarthralgia: Code(s): M25.50 - Pain in unspecified joint (5) Paresthesia: Code(s): R20.2 - Paresthesia of skin (6) Vision abnormalities: Code(s): H53.9 - Unspecified visual disturbance (7) Brain fog: Code(s): R41.89 - Other symptoms and signs involving cognitive functions and awareness Plan Have advised patient that so far, most of the extensive tests and evaluations that he's had over the past few months, including his head CT, brain MRI, EKG and labs, have all come back normal He also had several immunologic and serology testing done, including tests for Darrius-Matthews virus, hepatitis B and C, celiac disease, and even tests for Eastern equine encephalitis and stool PCR, and all of these have come back negative so far He was tested for CMV and West Nile virus as well - these came back IgG positive but negative IgM He has some additional labs including test for Lyme disease that are still pending at this time Per his request we will refer him to Cardiology for further evaluation and management of his on and off chest pains and intermittent palpitations symptoms Have advised patient that based on all of his current test results and information, it appears that majority of his symptoms, which are mostly nonspecific and incongruent, are most likely due to long COVID, and are also likely made to feel worse by his anxiety about all of his symptoms he is presently scheduled for some additional testing, including EMG and NCV in early May 2023 and has a follow-up appointment with Neurology shortly thereafter He also has an appointment coming up to see infectious disease for further evaluation of his positive IgG antibody titer for CMV and West Nile virus He is inquired about potentially treating him for CMV and West Nile virus as a precaution but have again pointed out to him he is negative for the IgM antibodies so he currently has no active infection to treat and that we do not treat IgG antibodies as they are mainly indicative of remote infection Follow up in 2 to 3 months Orders: Referrals Cardiology Referral R00.2 - Palpitations, R07.9 - Chest pain, unspecified Coding Level of Care Code Est Pt Level 4 (27803) Diagnoses Intermittent palpitations R00.2 Chest pain, unspecified type R07.9 Chest pain type: unspecified Nonintractable headache, unspecified chronicity pattern, unspecified headache type R51.9 Headache type: unspecified Headache chronicity pattern: unspecified pattern Intractability: not intractable Polyarthralgia M25.50 Paresthesia R20.2 Vision abnormalities H53.9 Brain fog R41.89
== END 2023-02-16 14:50 | disposition home or self-care (01) ==
PROVIDERS: PCP Nurse Practitioner Family; Visit Provider Internal Medicine
DX: R00.2 Palpitations (principal); R07.9 Chest pain, unspecified; R51.9 Headache, unspecified; M25.50 Pain in unspecified joint; R20.2 Paresthesia of skin; H53.9 Unspecified visual disturbance; R41.89 Other symptoms and signs involving cognitive functions and awareness
CPT/HCPCS: 99214

== ENCOUNTER 2023-04-11 14:27 | Outpatient (AMB) | payer OTHER, SELFPAY ==
[2023-04-11 14:28] VITALS: BP 120/84; PULSE 96; O2SAT 98; BMI 20.5
--- NOTE | 2023-04-11 14:28 | A.OFFPC_ITS ---
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 Accompanied by: Self / Same As Patient Allergies Penicillins Allergy (Intermediate, Verified 04/11/23 14:54) hives doxycycline Adverse Reaction (Intermediate, Verified 04/11/23 14:54) throbbing headaches cats Allergy (Intermediate, Uncoded 04/11/23 14:54) Runny Nose Pt states he has hx of hives;unsure of cause Adverse Reaction (Unknown, Uncoded 04/11/23 14:54) Unknown Medication List - Last Reconciled 04/11/23 by Gabe Valentine MD chlorhexidine gluconate 4% (Hibiclens) topical famotidine 10 mg PO BID 8 weeks fluticasone propionate 50 mcg/actuation (Flonase Allergy Relief) 1 spray intranasal DAILY multivitamin 1 tab PO DAILY mupirocin 2% 1 appl topical TID sulfamethoxazole-trimethoprim 800-160 mg 1 tab PO BID tizanidine 2 mg PO BEDTIME PRN Tobacco use date assessed: 04/11/23 Dental Screening Dental Screen Date: 04/11/23 Did you have a dental visit in the last 12 months?: Yes Did you have a dental problem in the last 6 months where you did not have access to dental care?: No Was dental information given to patient?: Patient has dentist HPI 2mth f/u HPI Details Patient comes in today for his follow up visit States that he still has his previous complaints/symptoms of headaches, vision problems, fatigue and other non-specific symptoms from his last visit but feels that most of these are starting to ease up slowly As previously mentioned, he's had several workups done so far over the past few months, including labs, head CT and MRI, all of which came back normal /negative He has also had extensive labs done including serologies - positive results include IgG antibodies for both CMV and West Nile virus but IgM antibodies were negative He was also tested for Hepatitis-B and C, Lyme disease and Darrius-Matthews virus, all of which came back negative Immunologic testings done a few months ago, including screening tests for RA, lupus and celiac disease, have all come back negative He is following up with infectious disease at [facility] and had some additional testings done over the past couple of months, including tests for Babesia and Bartonella - all of these have come back negative He was recently started on Bactrim BS BID by infectious disease for some staph infection that they isolated from his foot/ankle and he will supposedly be taking this for about 2 weeks He has been seen by neurology (Dr. Davi Huber in [place]) a couple of months ago and has a follow-up appointment with neurology on 05/24/2023 He is also scheduled to have an EMG and NCV done on 05/14/2023 for further evaluation States that he is also now seeing a therapist and will be seeing a psychiatrist soon Has been advised that he will likely benefit from some Rx to help control his anxiety States that he would like to get a flu shot today PFSH Medical History (Updated 04/11/23 @ 15:31 by Gabe Valentine MD) Anxiety Arthralgia Surgical History History of ear surgery History of rectal surgery Family History Mother Medical history unknown Father Medical history unknown Other Adopted person Social History Household Members: Other Household Members Other:: Roomate Housing: House Alcohol intake: current Alcohol intake frequency: 3 or more drinks per day Patient Tobacco Use Status: Never used Tobacco service: No Current occupational status: employed 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 1. Little interest or pleasure in doing things: not at all 2. Feeling down, depressed, or hopeless: not at all 3. Trouble falling or staying asleep, or sleeping too much: not at all 4. Feeling tired or having little energy: not at all 5. Poor appetite or overeating: not at all 6. Feeling bad about yourself - or that you are a failure or have let yourself or your family down: not at all 7. Trouble concentrating on things, such as reading the newspaper or watching television: not at all 8. Moving or speaking so slowly that other people could have noticed. Or the opposite - being so fidgety or restless that you have been moving around a lot more than usual: not at all 9. Thoughts that you would be better off or of hurting yourself in some way: not at all Total score: 0 Depression Screening Interpretation: Negative Depression Screening Done: Yes 21848 - PHQ-9 Billing: Yes Source: Developed by Drs. Scooter Briones, Lida Carey, Gerard Lakhani and colleagues, with an educational karol from [employer]. Thrive Questionnaire Date Thrive assessed: 04/11/23 I am a: Patient What is your living situation today?: I have a steady place to live Within the past 12 months, did the food you bought not last and you didn't have the money to get more?: Never true Within the past 12 months, did you worry whether your food would run out before you got money to buy more?: Never true Do you have trouble paying for medicines?: No Do you have trouble getting transportation to medical appointments?: No Do you have trouble paying your heating and electricity bill?: No Do you have trouble taking care of your child, family member or friend?: No Do you have trouble with day-to-day activities such as bathing, preparing meals, shopping, managing finances, etc.?: No Are you currently unemployed and looking for a job?: No Are you interested in more education?: No Please select the resources that you would like help with: None Currently or been in a relationship where the following occur: no concerns reported AUDIT C Alcohol Use Questionnaire (AUDIT-C) 1. How often do you have a drink containing alcohol?: 2-3 times a week 2. How many drinks containing alcohol do you have on a typical day when you are drinking?: 3 or 4 3. How often do you have six or more drinks on one occasion?: Daily or almost daily Total Score: 8 Score Reviewed/Action Taken: Yes ARVIND-7 AMB Questionnaire ARVIND-7 Date ARVIND - 7 assessed: 04/11/23 Feeling nervous, anxious, or on edge: 0 = Not at all Not being able to stop or control worryin = Not at all Worrying too much about different things: 0 = Not at all Trouble relaxin = Not at all Being so restless that it is hard to sit still: 0 = Not at all Becoming easily annoyed or irritable: 0 = Not at all Feeling afraid as if something awful might happen: 0 = Not at all Total ARVIND-7 score (0-4 normal; 5-9 mild; 10-14 moderate; 15-21 severe): 0 Source: Developed by Drs. Scooter Briones, Lida Carey, Gerard Lakhani and colleagues, with an educational karol from [employer]. Review of Systems Const Reports body aches (diffuse), Reports fatigue and Reports headache(s) (on and off) Eyes Reports blurry vision and Reports photophobia ENT Denies dysphagia, Reports dizziness (mild), Denies otalgia, Reports headache(s) (on and off), Reports neck pain, Denies odynophagia and Denies sore throat Card Reports chest pain (on and off), Denies lightheadedness, Reports palpitations (intermittent palpitations) and Reports dyspnea (on and off) Resp Denies cough and Reports dyspnea (on and off) GI Denies abdominal pain, Reports bloating, Denies dysphagia, Reports diarrhea (occasional), Denies nausea, Denies odynophagia and Denies vomiting Denies nocturia and Denies urinary frequency Musc Reports myalgias, Reports arthralgias (involving multiple joints), Reports muscle cramps (especially of the calf muscles, on and off), Reports neck pain, Reports numbness and Reports tingling (on and off in both hands and feet) Skin/Breast Reports rash (recurrent red rash over his palms and soles) Neuro Reports confusion, Reports dizziness (mild), Reports headache(s) (on and off), Reports memory loss, Reports numbness, Reports tingling (on and off in both hands and feet), Reports paresthesias and Reports tremor(s) (see HPI) Psych Reports anxiety, Reports confusion, Reports irritability and Reports memory loss Endo Reports cold intolerance, Reports fatigue, Reports heat intolerance and Reports palpitations (intermittent palpitations) Physical exam (Primary Care) Vital Signs: Last Vital Signs Pulse 96 04/11/23 14:28 BP 120/84 04/11/23 14:28 Pulse Ox 98 04/11/23 14:28 Oxygen Delivery Method Room Air 04/11/23 14:28 BMI result Body Mass Index 20.5 Tobacco/Smoking Status: Tobacco use Status Tobacco use date assessed 04/11/23 04/11/23 14:32 Patient Tobacco Use Status Never used Tobacco 04/11/23 14:32 PHQ-9: PHQ-9 Score PHQ-9: Total score 0 04/11/23 14:57 Depression Screening Interpretation: Negative Thrive Assessment: Date of Thrive Assessment Date Thrive assessed 04/11/23 04/11/23 14:32 Currently or been in a relationship where the following occur: no concerns reported Const General: confusion Orientation/consciousness: confusion HENMT Ears: TM's normal bilaterally and EAC's normal Throat: Yes posterior oropharynx normal and Yes tonsils normal (no TP congestion) Eyes Direct Ophthalmoscopy: photophobia Neck Neck: Yes no lymphadenopathy and Yes supple Resp Auscultation: clear to auscultation bilaterally, no rales and no wheezes Cardio Rate: regular rate Rhythm: regular rhythm Heart sounds: no murmurs GI Palpation (GI): Soft to palpation and nontender Auscultation: normal bowel sounds Neuro General: confusion Extrem General: Yes no clubbing, cyanosis or edema Office Procedures Flu Questionnaire Does the patient have a severe egg allergy?: No Does the patient have severe life threatening allergies?: No Does the patient have a fever or illness today?: No Has the patient ever had Guillain-[place] Syndrome?: No Has the patient ever had any past reaction to a flu shot?: No Immunizations flu vacc [id number] 6mos up(PF) 60 mcg(15 mcgx4)/0.5 mL IM syringe Performing Provider: Gabe Valentine MD Performing Location: [facility] Administered by: Rere Hu on 04/11/23 15:19 Dose Route Admin Location Dispensed Lot Number Expiration Date NDC Brick Picker 0.5 mL IM Left Deltoid 0.5 mL [id number] 11/04/23 18236-367-38 [employer] VIS Given Date VIS Provided VIS Publication Date 04/11/23 Single Vaccine 20 Eligibility Eligibility Date Funding Source Not [facility] Eligible 04/11/23 Private Assessment and Plan Assessment & Plan (1) Intermittent palpitations: Code(s): R00.2 - Palpitations (2) Chest pain: Code(s): R07.9 - Chest pain, unspecified Qualifiers: Chest pain type: unspecified Qualified Code(s): R07.9 - Chest pain, unspecified (3) Headache: Code(s): R51.9 - Headache, unspecified Qualifiers: Headache type: unspecified Headache chronicity pattern: unspecified pattern Intractability: not intractable Qualified Code(s): R51.9 - Headache, unspecified (4) Polyarthralgia: Code(s): M25.50 - Pain in unspecified joint (5) Paresthesia: Code(s): R20.2 - Paresthesia of skin (6) Vision abnormalities: Code(s): H53.9 - Unspecified visual disturbance (7) Brain fog: Code(s): R41.89 - Other symptoms and signs involving cognitive functions and awareness (8) Alcohol use disorder: Code(s): F10.90 - Alcohol use, unspecified, uncomplicated (9) Anxiety: Comment: likely fuctional component Code(s): F41.9 - Anxiety disorder, unspecified Plan So far, patient has had extensive tests and evaluations done over the past few months, including head CT, brain MRI, EKG and labs, all of which have come back normal/negative He also had several immunologic and serology testing done, including tests for Darrius-Matthews virus, hepatitis B and C, celiac disease, Lyme disease, tests for Bartonella and Babesia and even tests for Eastern equine encephalitis and stool PCR, and all of these have come back negative He was tested for CMV and West Nile virus as well - these came back IgG positive but negative IgM He is currently still following up with infectious disease at [facility] and was reportedly started on oral Bactrim DS recently for some cutaneous staph infection - he is supposed to take the Abx for about 2 weeks duration Per his request we referred him to Cardiology for further evaluation and management of his on and off chest pains and intermittent palpitations symptoms and he is scheduled to be seen by cardiology at [facility] in [place] in a couple of weeks Have advised patient again that based on all of his test results and information, it appears that majority of his symptoms are most likely due to long COVID, and are also likely made to feel worse by his anxiety He is presently scheduled for some additional testing, including EMG and NCV in early May 2023 and has a follow-up appointment with Neurology shortly thereafter to complete his evaluation He has been advised to try to cut back on his alcohol intake and encouraged to ultimately quit completely if he can He is to continue following up with psychiatry and his therapist and we agree with their recommendations that he can benefit from pharmacotherapy to help control his anxiety better Per request, flu vaccine given today Follow up in 3 months Orders: Orders Influenza [id number] Immunization Today Z23 - Encounter for immunization Coding Level of Care Code Est Pt Level 4 (20123) Diagnoses Intermittent palpitations R00.2 Chest pain, unspecified type R07.9 Chest pain type: unspecified Nonintractable headache, unspecified chronicity pattern, unspecified headache type R51.9 Headache type: unspecified Headache chronicity pattern: unspecified pattern Intractability: not intractable Polyarthralgia M25.50 Paresthesia R20.2 Vision abnormalities H53.9 Brain fog R41.89 Alcohol use disorder F10.90 Anxiety F41.9
== END 2023-04-11 15:19 | disposition home or self-care (01) ==
PROVIDERS: PCP Nurse Practitioner Family; Visit Provider Internal Medicine
DX: R00.2 Palpitations (principal); R07.9 Chest pain, unspecified; R51.9 Headache, unspecified; M25.50 Pain in unspecified joint; R20.2 Paresthesia of skin; H53.9 Unspecified visual disturbance; R41.89 Other symptoms and signs involving cognitive functions and awareness; F10.90 Alcohol use, unspecified, uncomplicated; F41.9 Anxiety disorder, unspecified; Z23 Encounter for immunization
CPT/HCPCS: 90471; 90686; 99214

== ENCOUNTER 2023-11-20 13:36 | Outpatient (AMB) | payer OTHER, SELFPAY ==
--- NOTE | 2023-11-20 13:39 | MHC.PC.OV ---
Vital Signs 11/20/23 13:43 Height 5 ft 11 in Weight 143 lb BMI 19.9 BP 116/66 Blood Pressure Location Lt brachial Position Sitting Pulse 88 Pulse Source Pulse Oximeter Pulse Oximetry (%) 97 Oxygen Delivery Method Room Air Intake Visit Reasons: Annual Exam Intake Note: Patient is here today for a physical. 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 Flour Worker: Not Required per policy Accompanied by: Self / Same As Patient Allergies Penicillins Allergy (Intermediate, Verified 11/20/23 14:17) hives doxycycline Adverse Reaction (Intermediate, Verified 11/20/23 14:17) throbbing headaches cats Allergy (Intermediate, Uncoded 11/20/23 14:17) Runny Nose Pt states he has hx of hives;unsure of cause Adverse Reaction (Unknown, Uncoded 11/20/23 14:17) Unknown Medication List - Last Reconciled 11/20/23 by Gabe Valentine MD No Known Home Meds Tobacco use date assessed: 11/20/23 Dental Screening Dental Screen Date: 11/20/23 Did you have a dental visit in the last 12 months?: Yes Did you have a dental problem in the last 6 months where you did not have access to dental care?: No Was dental information given to patient?: Patient has dentist HPI Annual Exam HPI Details Patient comes in today for his annual physical examination States that he is feeling better now that he was a few months ago He's had several tests and work ups done over the past few months, including NCV, sleep study, cardiac stress testing and hospital monitor - all of these came back normal or unrevealing He still has on and off headaches and is concerned that he may have migraine headaches Was seen by [facility] back in May 2023 and was reassured that he has no concerning neurological illness after his extensive testing, but patient does not think that he brought up the details of his headaches with them enough at the time States that he had a follow up appointment coming up with them on 11/28/23 that he had to cancel and he tried to call up to reschedule his appointment but was advised that sometime in early January 2024, the provider who saw him at the [facility] earlier this year will be moving into the office on [facility] and he is wondering if he needs to get a new referral from us States that his previous sensation of increased fatigue and vision issues have improved somewhat recently He denies any chest pains, no increased SOB He has not had any significant nausea or vomiting associated with his headaches; he denies any abdominal pain and no change in bowel habits noted recently He denies any acute urinary symptoms He continues to struggle with his sleep at night - states that this is mostly due to some anxiety and lingering concerns about not being able to find a girlfriend PFSH Medical History Anxiety Arthralgia Surgical History History of ear surgery History of rectal surgery Family History Mother Medical history unknown Father Medical history unknown Other Adopted person Social History Household Members: Other Household Members Other:: Roomate Housing: House Alcohol intake: current Alcohol intake frequency: a few times a week Patient Tobacco Use Status: Never used Tobacco e-Cigarette/Vaping Use: Never Used Second Hand Smoke Exposure: No service: No Current occupational status: employed Current occupation: [employer] Cognitive needs: No Hearing needs: No Vision needs: Yes (Glasses) Questionnaire PHQ-9 Over the last 2 weeks, how often have you been bothered by any of the following problems? 1. Little interest or pleasure in doing things: nearly every day 2. Feeling down, depressed, or hopeless: several days (in therapy) 3. Trouble falling or staying asleep, or sleeping too much: more than half the days 4. Feeling tired or having little energy: several days 5. Poor appetite or overeating: more than half the days 6. Feeling bad about yourself - or that you are a failure or have let yourself or your family down: more than half the days 7. Trouble concentrating on things, such as reading the newspaper or watching television: nearly every day 8. Moving or speaking so slowly that other people could have noticed. Or the opposite - being so fidgety or restless that you have been moving around a lot more than usual: not at all 9. Thoughts that you would be better off or of hurting yourself in some way: not at all Total score: 14 Depression Screening Interpretation: Positive Depression Screening Follow-up: Existing condition, In treatment (is seeing a therapist regularly) and Follow-up Visit Requested Depression Screening Done: Yes 53556 - PHQ-9 Billing: Yes Source: Developed by Drs. Scooter Briones, Lida Carey, Gerard Lakhani and colleagues, with an educational karol from [employer]. Thrive Questionnaire Date Thrive assessed: 11/20/23 I am a: Patient What is your living situation today?: I have a steady place to live Within the past 12 months, did the food you bought not last and you didn't have the money to get more?: Never true Within the past 12 months, did you worry whether your food would run out before you got money to buy more?: Never true Do you have trouble paying for medicines?: No Do you have trouble getting transportation to medical appointments?: No Do you have trouble paying your heating and electricity bill?: No Do you have trouble taking care of your child, family member or friend?: No Do you have trouble with day-to-day activities such as bathing, preparing meals, shopping, managing finances, etc.?: No Are you currently unemployed and looking for a job?: No Are you interested in more education?: No Currently or been in a relationship where the following occur: No concerns reported THRIVE Score: 0 AUDIT C Alcohol Use Questionnaire (AUDIT-C) 1. How often do you have a drink containing alcohol?: 2-4 times a month 2. How many drinks containing alcohol do you have on a typical day when you are drinking?: 3 or 4 3. How often do you have six or more drinks on one occasion?: Never Total Score: 3 Score Reviewed/Action Taken: Yes ARVIND-7 AMB Questionnaire ARVIND-7 Date ARVIND - 7 assessed: 11/20/23 Feeling nervous, anxious, or on edge: 1 = Several days (in therapy) Not being able to stop or control worryin = Nearly every day Worrying too much about different things: 3 = Nearly every day Trouble relaxin = Nearly every day Being so restless that it is hard to sit still: 2 = More than half the days Becoming easily annoyed or irritable: 2 = More than half the days Feeling afraid as if something awful might happen: 0 = Not at all Total ARVIND-7 score (0-4 normal; 5-9 mild; 10-14 moderate; 15-21 severe): 14 Source: Developed by Drs. Scooter Briones, Lida Carey, Gerard Lakhani and colleagues, with an educational karol from [employer]. Review of Systems Const Reports body aches (at times), Denies chills, Reports difficulty sleeping, Reports fatigue, Denies fever(s), Reports headache(s) (on and off; not associated with photophobia or nausea/vomiting), Denies malaise and Denies weakness Eyes Denies blurry vision, Denies change in vision, Denies irritation and Denies itchy eyes ENT Denies dysphagia, Denies dizziness, Denies otalgia, Reports headache(s) (on and off; not associated with photophobia or nausea/vomiting), Denies nasal congestion, Denies neck pain, Denies odynophagia and Denies sore throat Card Denies chest pain, Denies rapid heart rate, Denies irregular heart rhythm, Denies palpitations and Denies dyspnea Resp Denies chest congestion, Denies cough, Denies dyspnea and Denies wheezing GI Denies abdominal pain, Denies bloating, Denies constipation, Denies dysphagia, Denies heartburn, Denies diarrhea, Denies nausea, Denies odynophagia and Denies vomiting Denies hematuria, Denies difficulty urinating, Denies dysuria, Denies urinary frequency and Denies urinary urgency Musc Denies back pain, Denies arthralgias, Denies joint swelling, Denies muscle weakness and Denies neck pain Skin/Breast Denies change in pigmentation, Denies lesions, Denies rash and Denies unusual bruising Neuro Denies dizziness, Reports headache(s) (on and off; not associated with photophobia or nausea/vomiting), Denies paresthesias and Denies weakness Psych Reports anxiety Endo Reports fatigue and Denies palpitations Aller/Immun Denies itchy eyes and Denies wheezing Physical exam (Primary Care) Vital Signs: Last Vital Signs Pulse 88 11/20/23 13:43 BP 116/66 11/20/23 13:43 Pulse Ox 97 11/20/23 13:43 Oxygen Delivery Method Room Air 11/20/23 13:43 BMI result Body Mass Index 19.9 Tobacco/Smoking Status: Tobacco use Status Tobacco use date assessed 11/20/23 11/20/23 13:42 Patient Tobacco Use Status Never used Tobacco 11/20/23 13:46 e-Cigarette/Vaping Use Never Used 11/20/23 13:46 PHQ-9: PHQ-9 Score PHQ-9: Total score 14 11/20/23 14:47 Depression Screening Interpretation: Positive Depression Screening Follow-up: Existing condition, In treatment (is seeing a therapist regularly) and Follow-up Visit Requested Thrive Assessment: Date of Thrive Assessment Date Thrive assessed 11/20/23 11/20/23 13:42 Currently or been in a relationship where the following occur: No concerns reported Const General: no acute distress, alert and awake Orientation/consciousness: patient oriented x3 HENMT Head: Yes normocephalic and Yes atraumatic Ears: external ears normal, TM's normal bilaterally and EAC's normal General nose exam: No nasal discharge present Face and sinus: Yes normal facial exam and Yes sinuses nontender Teeth and gingiva: dentition normal Throat: Yes posterior oropharynx normal and Yes tonsils normal (no TP congestion) Eyes Eyelids: Yes eyelids normal Conjunctivae: conjunctivae normal Pupils: Equal, round and reactive pupils present EOM: EOMs intact bilaterally Neck Neck: Yes no lymphadenopathy and Yes supple Thyroid: Thyroid normal Resp Auscultation: clear to auscultation bilaterally, no rales and no wheezes Cardio Rate: regular rate Rhythm: regular rhythm Heart sounds: no murmurs GI Palpation (GI): Soft to palpation, nontender and No hepatosplenomegaly present Auscultation: normal bowel sounds General: Yes no CVA tenderness Back/Spine/Pelvis Back: no CVA tenderness Thoracic/Lumbar Spine: thoracic and lumbar spine normal to inspection Skin Lesions: no lesions Rashes: no rashes Neuro General: patient oriented x3, moves all extremities, no focal motor deficits and CN's II-XI intact bilaterally Cranial nerves: Yes Equal, round and reactive pupils present Cognition (Neuro): normal cognition Gait exam (Neuro): Normal gait present Extrem General: Yes no clubbing, cyanosis or edema Assessment and Plan Assessment & Plan (1) Annual physical exam: Code(s): Z00.00 - Encounter for general adult medical examination without abnormal findings Plan: Check labs (2) Headache: Code(s): R51.9 - Headache, unspecified Qualifiers: Headache chronicity pattern: unspecified pattern Headache type: unspecified Intractability: not intractable Qualified Code(s): R51.9 - Headache, unspecified Plan: Follow up with neurology as scheduled Patient has had extensive work ups done over the past several months and all of his tests have been negative or unrevealing so far Patient is advised that since he is going to be seeing the same provider even though he is moving to a different office, he should still not really need any new referral but advised that he can call for referral in case one is now required (3) Alcohol use disorder: Code(s): F10.90 - Alcohol use, unspecified, uncomplicated Plan: He has been and is again advised to try to cut back on his alcohol intake and encouraged to ultimately quit completely if he can (4) Anxiety: Comment: likely fuctional component Code(s): F41.9 - Anxiety disorder, unspecified Plan: Follow up with psychiatry as scheduled Plan To return in 1 year for his next annual physical examination Orders: Orders Comprehensive [place]. Panel Fast 11/20/23 E78.00 - Pure hypercholesterolemia, unspecified, Z00.00 - Encounter for general adult medical examination without abnormal findings TSH reflex Free T4 11/20/23 E78.00 - Pure hypercholesterolemia, unspecified, Z00.00 - Encounter for general adult medical examination without abnormal findings UA CC w/rflx Micro + Cult 11/20/23 R30.0 - Dysuria, Z00.00 - Encounter for general adult medical examination without abnormal findings Vitamin D 25-OH Total 11/20/23 E55.9 - Vitamin D deficiency, unspecified, Z00.00 - Encounter for general adult medical examination without abnormal findings Complete Blood Count Auto Diff 11/20/23 D64.9 - Anemia, unspecified, Z00.00 - Encounter for general adult medical examination without abnormal findings Lipid Panel 11/20/23 E78.00 - Pure hypercholesterolemia, unspecified, Z00.00 - Encounter for general adult medical examination without abnormal findings Coding Level of Care Code Est Pt Prev Care 18-39y([id number]) Diagnoses Annual physical exam Z00.00 Nonintractable headache, unspecified chronicity pattern, unspecified headache type R51.9 Headache chronicity pattern: unspecified pattern Headache type: unspecified Intractability: not intractable Alcohol use disorder F10.90 Anxiety F41.9
[2023-11-20 13:43] VITALS: BP 116/66; PULSE 88; O2SAT 97; BMI 19.9
== END 2023-11-20 14:36 | disposition home or self-care (01) ==
PROVIDERS: PCP Internal Medicine; Visit Provider Internal Medicine
DX: Z00.00 Encounter for general adult medical examination without abnormal findings (principal); R51.9 Headache, unspecified; F10.90 Alcohol use, unspecified, uncomplicated; F41.9 Anxiety disorder, unspecified
CPT/HCPCS: 99395

== ENCOUNTER 2023-12-08 08:20 | Outpatient (REF) | payer OTHER, SELFPAY ==
[2023-12-08 09:07] LABS: MANUAL DIFF FLAG NO
[2023-12-08 09:45] LABS: Basophils Absolute Auto 0.1 X10*3/uL (0.0-0.2); Basophils Percent Auto 0.9 % (0-2); Eosinophils Absolute Auto 0.2 X10*3/uL (0.0-0.4); Eosinophils Percent Auto 3.9 % (0-4); Hemoglobin 15.1 g/dl (14.0-18.0); Imm Gran Abs Auto 0.01 X10*3/uL (0.00-0.03); Imm Gran Pct Auto 0.2 % (0.0-0.4); Lymphocytes Absolute Auto 1.7 X10*3/uL (1.2-4.9); Mean Corpuscular HGB Conc 33.6 g/dl (31.0-36.0); Mean Corpuscular Hemoglobin 30.5 pg (27.0-33.0); Mean Corpuscular Volume 90.9 fL (80.0-98.0); Monocytes Absolute Auto 0.3 X10*3/uL (0.1-1.2); Monocytes Percent Auto 6.3 % (2-11); Neutrophils Absolute Auto 3.1 x10*3/uL (2.0-8.3); Neutrophils Percent Auto 57.7 % (45-73); Platelet Count 260 X10*3/uL (160-400); Red Blood Count 4.95 X10*6/uL (4.60-5.80); Red Cell Distribution Width 12.2 % (11.0-16.0); White Blood Count 5.4 X10*3/uL (4.8-10.8)
[2023-12-08 10:17] LABS: Alanine Aminotransferase 32 U/L (0-40); Albumin Level 4.3 g/dL (3.5-5.0); Alkaline Phosphatase 76 U/L (39-117); Anion Gap 12 (12-20); Aspartate Amino Transferase 24 U/L (5-37); Bilirubin Total 0.5 mg/dL (0.0-1.0); Blood Urea Nitrogen 14 mg/dL (9-16); Calcium 9.1 mg/dL (8.4-10.2); Carbon Dioxide 27 mmol/L (22-29); Chloride 105 mmol/L (96-108); Cholesterol 169 mg/dL (<200); Estimated Glomerular Filt Rate > 60; Glucose Fasting 100 mg/dL (60-99); HDL Cholesterol 54 mg/dL (>40); LDL Cholesterol Calculated 104 mg/dL (<100); Potassium 4.2 mmol/L (3.3-5.1); Sodium 140 mmol/L (135-145); Total Protein 6.9 g/dL (6.5-8.0); Triglycerides 59 mg/dL (<150)
[2023-12-08 10:19] LABS: TSH reflex Free T4 1.28 uIU/mL (0.32-4.0); Vitamin D 25-OH Total 31.4 ng/mL (>30)
[2023-12-08 10:47] LABS: Appearance Urine Clear; Color Urine Yellow; Glucose Urine UA Negative (Negative); Leukocyte Esterase Urine Negative (Negative); Nitrite Urine Negative (Negative); PH 6.5 (5.0-9.0); Specific Gravity - Urine >= 1.030 (1.005-1.025); Urine Blood Negative (Negative); Urine Ketones Negative (Negative); Urine Protein Trace mg/dL (Neg-Trace)
== END 2023-12-08 08:21 | disposition home or self-care (01) ==
LOC: HO.LAB 08:20
PROVIDERS: PCP Internal Medicine; Visit Provider Internal Medicine
DX: Z00.00 Encounter for general adult medical examination without abnormal findings (principal); D64.9 Anemia, unspecified; E78.00 Pure hypercholesterolemia, unspecified; R30.0 Dysuria; E55.9 Vitamin D deficiency, unspecified
CPT/HCPCS: 36415; 80053; 80061; 81003; 82306; 84443; 85025

== ENCOUNTER 2024-11-21 14:54 | Outpatient (AMB) | payer OTHER, SELFPAY ==
[2024-11-21 14:57] VITALS: BP 120/86; PULSE 65; O2SAT 98; BMI 21.5
--- NOTE | 2024-11-21 14:57 | MHC.PC.OV ---
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 Required: No Accompanied by: Self / Same As Patient Allergies Penicillins Allergy (Intermediate, Verified 11/21/24 15:31) hives doxycycline Adverse Reaction (Intermediate, Verified 11/21/24 15:31) throbbing headaches cats Allergy (Intermediate, Uncoded 11/21/24 15:31) Runny Nose Pt states he has hx of hives;unsure of cause Adverse Reaction (Unknown, Uncoded 11/21/24 15:31) Unknown Medication List - Last Reconciled 11/21/24 by Gabe Valentine MD No Known Home Meds Tobacco use date assessed: 11/21/24 Dental Screening Dental Screen Date: 11/21/24 HPI Annual Exam HPI Details Patient comes in today for his annual physical examination States that he feels well overall He reportedly does at positive for COVID a couple of months ago in early September 2024 but states that his symptoms are mostly mild and it cleared up completely after a few days with only symptomatic treatment with OTC meds He currently denies any headaches or dizziness Denies any chest pains, no shortness of breath No nausea/vomiting, no abdominal pain No change in bowel habits noted He denies any acute urinary symptoms He continues to see his therapist every week regularly for his depression and is currently on no maintenance medications, which he prefers to keep this way as long as possible [facility] Medical History Anxiety Arthralgia Surgical History History of ear surgery History of rectal surgery Family History Mother Medical history unknown Father Medical history unknown Other Adopted person Social History Household Members: Other Household Members Other:: Roomate Housing: House Alcohol intake: current Alcohol intake frequency: a few times a week Patient Tobacco Use Status: Never used Tobacco e-Cigarette/Vaping Use: Never Used Second Hand Smoke Exposure: No service: No Current occupational status: employed 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 1. Little interest or pleasure in doing things: not at all 2. Feeling down, depressed, or hopeless: not at all 3. Trouble falling or staying asleep, or sleeping too much: not at all 4. Feeling tired or having little energy: not at all 5. Poor appetite or overeating: not at all 6. Feeling bad about yourself - or that you are a failure or have let yourself or your family down: not at all 7. Trouble concentrating on things, such as reading the newspaper or watching television: not at all 8. Moving or speaking so slowly that other people could have noticed. Or the opposite - being so fidgety or restless that you have been moving around a lot more than usual: not at all 9. Thoughts that you would be better off or of hurting yourself in some way: not at all Total score: 0 Depression Screening Interpretation: Negative Depression Screening Done: Yes 95235 - PHQ-9 Billing: Yes Source: Developed by Drs. Scooter Briones, Lida Carey, Gerard Lakhani and colleagues, with an educational karol from [employer]. Thrive Questionnaire Date Thrive assessed: 11/21/24 I am a: Patient What is your living situation today?: I have a steady place to live Within the past 12 months, did the food you bought not last and you didn't have the money to get more?: I choose not to answer this question Within the past 12 months, did you worry whether your food would run out before you got money to buy more?: I choose not to answer this question Do you have trouble paying for medicines?: I choose not to answer this question Do you have trouble getting transportation to medical appointments?: I choose not to answer this question Do you have trouble paying your heating and electricity bill?: I choose not to answer this question Do you have trouble taking care of your child, family member or friend?: I choose not to answer this question Do you have trouble with day-to-day activities such as bathing, preparing meals, shopping, managing finances, etc.?: I choose not to answer this question Are you currently unemployed and looking for a job?: I choose not to answer this question Are you interested in more education?: I choose not to answer this question Please select the resources that you would like help with: None Currently or been in a relationship where the following occur: No concerns reported THRIVE Score: 0 AUDIT C Alcohol Use Questionnaire (AUDIT-C) 1. How often do you have a drink containing alcohol?: Monthly or less 2. How many drinks containing alcohol do you have on a typical day when you are drinking?: 1 or 2 3. How often do you have six or more drinks on one occasion?: Never Total Score: 1 Score Reviewed/Action Taken: Yes ARVIND-7 AMB Questionnaire ARVIND-7 Date ARVIND - 7 assessed: 11/21/24 Feeling nervous, anxious, or on edge: 0 = Not at all Not being able to stop or control worryin = Not at all Worrying too much about different things: 0 = Not at all Trouble relaxin = Not at all Being so restless that it is hard to sit still: 0 = Not at all Becoming easily annoyed or irritable: 0 = Not at all Feeling afraid as if something awful might happen: 0 = Not at all Total ARVIND-7 score (0-4 normal; 5-9 mild; 10-14 moderate; 15-21 severe): 0 Source: Developed by Drs. Scooter Briones, Lida Carey, Gerard Lakhani and colleagues, with an educational karol from [employer]. Review of Systems Const Denies chills, Denies fatigue, Denies fever(s), Denies headache(s), Denies malaise and Denies weakness Eyes Denies blurry vision, Denies change in vision, Denies irritation and Denies itchy eyes ENT Denies dysphagia, Denies dizziness, Denies otalgia, Denies headache(s), Denies nasal congestion, Denies neck pain, Denies odynophagia and Denies sore throat Card Denies chest pain, Denies rapid heart rate, Denies irregular heart rhythm, Denies palpitations and Denies dyspnea Resp Denies chest congestion, Denies cough, Denies dyspnea and Denies wheezing GI Denies abdominal pain, Denies bloating, Denies constipation, Denies dysphagia, Denies heartburn, Denies diarrhea, Denies nausea, Denies odynophagia and Denies vomiting Denies hematuria, Denies difficulty urinating, Denies dysuria, Denies urinary frequency and Denies urinary urgency Musc Denies back pain, Denies arthralgias, Denies joint swelling, Denies muscle weakness and Denies neck pain Skin/Breast Denies change in pigmentation, Denies lesions, Denies rash and Denies unusual bruising Neuro Denies dizziness, Denies headache(s), Denies paresthesias and Denies weakness Endo Denies fatigue and Denies palpitations Aller/Immun Denies itchy eyes and Denies wheezing Physical exam (Primary Care) Vital Signs: Last Vital Signs Pulse 65 11/21/24 14:57 BP 120/86 11/21/24 14:57 Pulse Ox 98 11/21/24 14:57 Oxygen Delivery Method Room Air 11/21/24 14:57 BMI result Body Mass Index 21.5 Tobacco/Smoking Status: Tobacco use Status Tobacco use date assessed 11/21/24 11/21/24 15:00 Patient Tobacco Use Status Never used Tobacco 11/21/24 15:00 e-Cigarette/Vaping Use Never Used 11/21/24 15:00 PHQ-9: PHQ-9 Score PHQ-9: Total score 0 11/21/24 15:33 Depression Screening Interpretation: Negative Thrive Assessment: Date of Thrive Assessment Date Thrive assessed 11/21/24 11/21/24 15:00 Currently or been in a relationship where the following occur: No concerns reported Const General: no acute distress, alert and awake Orientation/consciousness: patient oriented x3 HENMT Head: Yes normocephalic and Yes atraumatic Ears: external ears normal, TM's normal bilaterally and EAC's normal General nose exam: No nasal discharge present Face and sinus: Yes normal facial exam and Yes sinuses nontender Teeth and gingiva: dentition normal Throat: Yes posterior oropharynx normal and Yes tonsils normal (no TP congestion) Eyes Eyelids: Yes eyelids normal Conjunctivae: conjunctivae normal Pupils: Equal, round and reactive pupils present EOM: EOMs intact bilaterally Neck Neck: Yes no lymphadenopathy and Yes supple Thyroid: Thyroid normal Resp Auscultation: clear to auscultation bilaterally, no rales and no wheezes Cardio Rate: regular rate Rhythm: regular rhythm Heart sounds: no murmurs GI Palpation (GI): Soft to palpation, nontender and No hepatosplenomegaly present Auscultation: normal bowel sounds General: Yes no CVA tenderness Back/Spine/Pelvis Back: no CVA tenderness Thoracic/Lumbar Spine: thoracic and lumbar spine normal to inspection Skin Lesions: no lesions Rashes: no rashes Neuro General: patient oriented x3, moves all extremities, no focal motor deficits and CN's II-XI intact bilaterally Cranial nerves: Yes Equal, round and reactive pupils present Cognition (Neuro): normal cognition Gait exam (Neuro): Normal gait present Extrem General: Yes no clubbing, cyanosis or edema Coding Level of Care Code Est Pt Prev Care 18-39y([id number]) Diagnoses Annual physical exam Z. Alcohol use disorder F10.90 Anxiety F41.9 Additional Codes PHQ-9 - 88831 - PHQ-9 Billing: Yes ([id number]) Assessment & Plan Assessment & Plan (1) Annual physical exam: Code(s): Z00. - Encounter for general adult medical examination without abnormal findings Category: Medical Plan: Check labs (2) Alcohol use disorder: Code(s): F10.90 - Alcohol use, unspecified, uncomplicated Category: Medical Plan: He has been and is again advised to try to cut back on his alcohol intake and encouraged to ultimately quit completely if he can Patient states that he is now down to just a few drinks a week and will continue to work on this (3) Anxiety: Comment: likely fuctional component Code(s): F41.9 - Anxiety disorder, unspecified Category: Medical Plan: Follow up with psychiatry as scheduled Plan To return in 1 year for his next annual physical examination Orders: Orders Comprehensive [place]. Panel Fast 11/21/24 E78.00 - Pure hypercholesterolemia, unspecified, Z00. - Encounter for general adult medical examination without abnormal findings Lipid Panel 11/21/24 E78. - Pure hypercholesterolemia, unspecified, Z00. - Encounter for general adult medical examination without abnormal findings TSH reflex Free T4 11/21/24 E78.00 - Pure hypercholesterolemia, unspecified, Z00. - Encounter for general adult medical examination without abnormal findings Vitamin D 25-OH Total 11/21/24 E55.9 - Vitamin D deficiency, unspecified, Z00.00 - Encounter for general adult medical examination without abnormal findings Complete Blood Count Auto Diff 11/21/24 D64.9 - Anemia, unspecified, Z00.00 - Encounter for general adult medical examination without abnormal findings UA CC w/rflx Micro + Cult 11/21/24 R30.0 - Dysuria, Z00.00 - Encounter for general adult medical examination without abnormal findings
--- OUTSIDE RECORDS SUMMARY | 2024-11-21 14:57 | XMS_ITS | Clinical Summary ---
Author Organization [facility] ity Address [address] [place] [address] Care Team Providers Care Glue Drier Operator Name Role Phone Unavailable Primary Care Provider Unavailabl e Social History Tobacco Use Types Packs/Day Years Used Date Smoking Tobacco: Never Assessed Sex and Gender Information Value Date Recorded Sex Assigned at Not on file Legal Sex Male 6:02 AM EST Gender Identity Not on file Sexual Orientation Not on file Plan of Treatment Health Maintenance Due Date Last Done Comments DTaP,Tdap,and Td Vaccines (1 - Tdap) 2009 Hepatitis B Vaccines (1 of 3 - 19+ 3-dose series) 2009 Depression Screening 06/05/2023 HIV Screening 06/05/2023 Hepatitis C Screening 06/05/2023 Social Influencers of Health Screening 06/05/2023 COVID-19 Vaccine ( - 2023-2 5 season) 2024 Influenza Vaccine (#1) 2025 HIB Vaccines Aged Out No longer eligi ble based on patient's age to complete this topic HPV Vaccines Aged Out No longer eligi ble based on patient's age to complete this topic Hepatitis A Vaccines Aged Out No long er eligible based on patient's age to complete this topic IPV Vaccines Aged Out No longer eligi ble based on patient's age to complete this topic MMR Vaccines Aged Out No longer eligi ble based on patient's age to complete this topic Meningococcal ACWY Vaccine Aged Out N o longer eligible based on patient's age to complete this topic Meningococcal B Vaccine Aged Out No l onger eligible based on patient's age to complete this topic Pneumococcal Vaccine: Pediat rics (0 to 5 Years) and At-Risk Patients (6 to 49 Years) Aged Out No longer eligible b ased on patient's age to complete this topic RSV Immunization Patients Un [place] 20 months Aged Out No longer eligible b ased on patient's age to complete this topic Varicella Vaccines Aged Out No longer eligible based on patient's age to complete this topic
--- OUTSIDE RECORDS SUMMARY | 2024-11-21 14:57 | XMS_ITS | Encounter Summary ---
Author Organization [facility] Address [address] [place] [address] Phone Care Team Providers Care Backup Administrator Name Role Phone Gabe Valentine MD Primary Care Provider Un available Encounter Details Date Type Department Care Team (Late st Contact Info) Description 04/20/2023 Procedure Pass Echo [facility] [address] [place] [address] Social History Tobacco Use Types Packs/Day Years Used Date Smoking Tobacco: Never Passive Smoke Exposure: Never Smokeless Tobacco: Never Education Answer Date Recorded Are you interested in more education? Not on radha e 02/20/2023 Are you concerned about learning? Not on file 02/20/2023 No 02/20/2023 No 02/20/2023 Digital Access Answer Date Recorded No 02/20/2023 No 02/20/2023 Reliable internet access at home? Not on file 02/20/2023 Device with a working camera? Not on file Sex and Gender Information Value Date Recorded Sex Assigned at Not on file Legal Sex Male 11:50 AM EDT Gender Identity Not on file Sexual Orientation Not on file documented as of this encounter Plan of Treatment Not on file documented as of this encounter Visit Diagnoses Not on filedocumented in this encounter Care Teams Backup Administrator Relationship Specialty Start Date End Date Gabe Valentine MD PCP - General Internal Medicine 04/20/23 documented as of this encounter Additional Source Comments The information contained in this document represents components of the legal health record. It is not the complete legal health record.[facility]
--- OUTSIDE RECORDS SUMMARY | 2024-11-21 14:57 | XMS_ITS ---
Author Name [facility] Organization Unknown Care Team Organization Name Specialty Phone Email Start Date End [facility]
== END 2024-11-21 15:42 | disposition home or self-care (01) ==
LOC: HO.HMCH 14:55
PROVIDERS: PCP Internal Medicine; Visit Provider Internal Medicine
DX: Z00.00 Encounter for general adult medical examination without abnormal findings (principal); F10.90 Alcohol use, unspecified, uncomplicated; F41.9 Anxiety disorder, unspecified

== ENCOUNTER → 2024-11-21 14:54 | Outpatient (BNVA) | payer OTHER, SELFPAY | PROVIDERS: PCP Internal Medicine; Visit Provider Internal Medicine | DX: Z00.00 Encounter for general adult medical examination without abnormal findings (principal); F41.9 Anxiety disorder, unspecified; F10.90 Alcohol use, unspecified, uncomplicated; Z13.31 Encounter for screening for depression; Z13.39 Encounter for screening examination for other mental health and behavioral disorders | CPT/HCPCS: 96127; 99395 ==

== ENCOUNTER 2024-11-29 09:31 | Outpatient (REF) | payer OTHER, SELFPAY ==
--- OUTSIDE RECORDS SUMMARY | 2024-11-29 09:33 | XMS_ITS | Clinical Summary ---
Author Organization [facility] ity Address [address] [place] [address] Care Team Providers Care Funeral Director Name Role Phone Unavailable Primary Care Provider [...] of 3 - 19+ 3-dose series) 2009 HIV Screening 06/05/2023 Hepatitis C Screening 06/05/2023 Social Influencers of Health Screening 06/05/2023 COVID-19 Vaccine (1 - 2023-2 5 season) 2024 Depression Screening 05/07/2024 Influenza Vaccine (#1) 2025 HIB Vaccines Aged [...]
--- OUTSIDE RECORDS SUMMARY | 2024-11-29 09:34 | XMS_ITS | Encounter Summary ---
Author Organization [facility] Address [address] [place] [address] Phone Care Team Providers Care Mail Superintendent Name Role Phone Gabe Valentine MD Primary Care Provider [phone] Encounter Details Date Type Department Care Team (Late st Contact Info) Description 04/20/2023 Procedure Pass [facility] [address] [place] [id number] Social History Tobacco Use Types [...] on filedocumented in this encounter Care Teams Mail Superintendent Relationship Specialty Start Date End Date Gabe Valentine MD [address] [place] [address] [place] [id number] PCP - General Internal Medicine 04/20/23 documented as of this encounter Additional Source Comments The information contained in this document represents components of the legal health record. It is not the complete legal health record.[facility]
[2024-11-29 09:40] LABS: MANUAL DIFF FLAG NO
[2024-11-29 09:58] LABS: Appearance Urine Clear; Glucose Urine UA Negative (Negative); PH 5.5 (5.0-9.0); Specific Gravity - Urine >= 1.030 (1.005-1.025)
[2024-11-29 10:03] LABS: Hematocrit 43.5 % (42.0-52.0); Hemoglobin 15.0 g/dl (14.0-18.0); Imm Gran Abs Auto 0.02 X10*3/uL (0.00-0.03); Imm Gran Pct Auto 0.3 % (0.0-0.4); Lymphocytes Absolute Auto 2.7 X10*3/uL (1.2-4.9); Mean Corpuscular HGB Conc 34.5 g/dl (31.0-36.0); Mean Corpuscular Hemoglobin 30.2 pg (27.0-33.0); Mean Corpuscular Volume 87.5 fL (80.0-98.0); NRBC Abs Auto 0.000 X10*3/uL (0.0-0.012); NRBC Pct Auto 0.0 /100WBC (0.0-0.2); Platelet Count 282 X10*3/uL (160-400); Red Blood Count 4.97 X10*6/uL (4.60-5.80); White Blood Count 6.4 X10*3/uL (4.8-10.8)
[2024-11-29 10:57] LABS: Alanine Aminotransferase 52 U/L (0-40); Albumin Level 4.6 g/dL (3.5-5.0); Alkaline Phosphatase 93 U/L (39-117); Anion Gap 14 (12-20); Aspartate Amino Transferase 40 U/L (5-37); Blood Urea Nitrogen 15 mg/dL (9-16); Calcium 9.0 mg/dL (8.4-10.2); Carbon Dioxide 23 mmol/L (22-29); Chloride 107 mmol/L (96-108); Cholesterol 207 mg/dL (<200); Estimated Glomerular Filt Rate > 60; HDL Cholesterol 42 mg/dL (>40); Potassium 4.2 mmol/L (3.3-5.1); Sodium 140 mmol/L (135-145); Total Protein 7.3 g/dL (6.5-8.0); Triglycerides 109 mg/dL (<150)
[2024-11-29 11:57] LABS: Free T4 (Free Thyroxine) 1.01 ng/dL (0.71-1.85)
== END 2024-11-29 09:32 | disposition home or self-care (01) ==
LOC: HO.LAB 09:31
PROVIDERS: PCP Internal Medicine; Visit Provider Internal Medicine
DX: Z00.00 Encounter for general adult medical examination without abnormal findings (principal); E78.00 Pure hypercholesterolemia, unspecified; E55.9 Vitamin D deficiency, unspecified; D64.9 Anemia, unspecified; R30.0 Dysuria
CPT/HCPCS: 36415; 80053; 80061; 81003; 82306; 84439; 84443; 85025